=== PATIENT | female | born 1985 | race Caucasian/White ===

== ENCOUNTER → 2018-05-27 11:27 | Outpatient (CLI) | payer OTHER, MEDICAID, SELFPAY ==
[2018-05-27 12:16] LABS: Add Manual Diff / Slide Review NO; Basophils Percent Auto 0.4 % (0-2); Eosinophils Percent Auto 0.5 % (2-4); Hematocrit 42.1 % (36-46); Hemoglobin 14.6 g/dL (12.0-16.0); Lymphocytes Percent Auto 31.2 % (25-40); Mean Corpuscular HGB Conc 34.7 % (30-36); Mean Corpuscular Hemoglobin 30.3 PG (26-34); Mean Corpuscular Volume 87.2 fL (80-100); Neutrophils Absolute Auto 4100 /uL (1500-7000); Neutrophils Percent Auto 61.9 % (50-75); Platelet Count 200 X10^3/uL (150-400); Red Blood Cell Count 4.82 X10^6/uL (4.0-5.2); Red Cell Distribution Width 12.9 % (11.6-14.8); White Blood Cell Count 6.6 X10^3/uL (4.5-11.0)
[2018-05-27 12:20] LABS: Glucose 93 mg/dL (70-100)
[2018-05-27 12:23] LABS: Hemoglobin A1C% w Est Avg Glu 5.2 % (4.0-6.0)
[2018-05-27 15:54] LABS: Appearance Urine UA CLEAR; Bilirubin Urine UA NEGATIVE (NEGATIVE); Color Urine UA YELLOW; Glucose Urine UA NEGATIVE (Negative); Ketones Urine UA NEGATIVE (NEGATIVE); Leukocyte Esterase Urine UA TRACE (NEGATIVE); Nitrite Urine UA NEGATIVE (Negative); Occult Blood Urine UA TRACE-LYSED (Negative); Protein Urine UA NEGATIVE (Negative); Specific Gravity Urine UA 1.015 (1.000-1.035); Urobilinogen Urine UA 0.2 E.U./dL (0.2); pH Urine UA 5.5 (4.5-8.0)
[2018-05-27 16:29] LABS: Amorphous Sediment Urine 1+; Bacteria Urine Occasional (0-1); RBC Urine 0-1/HPF (0-5/HPF); Squamous Epithelial Cell Urine 1-5 /HPF; WBC Urine 1-5/HPF (0-5/HPF)
[2018-05-27 16:30] LABS: Culture Indicated Urine Specimen Cultured
[2018-05-30 13:09] LABS: HSV 2 IGG AB < 0.90 index (< 0.90)
[2018-06-03 18:10] LABS: RPR Screen Nonreactive (Nonreactive)
== END ==
DX: Z34.81 Encounter for supervision of other normal pregnancy, first trimester (principal)
CPT/HCPCS: 36415; 80055; 81003; 81015; 82947; 83036; 86695; 86696; 86702; 86703; 86787; 86803; 86850; 86900; 86901; 87086; 87340

== ENCOUNTER → 2018-07-11 11:06 | Outpatient (CLI) | payer BC, OTHER, MEDICAID, SELFPAY ==
[2018-07-15 13:12] LABS: Sequential Screen 1st Trimeste FINAL PENDING
== END ==
PROVIDERS: PCP Physician Assistant Medical
DX: Z34.81 Encounter for supervision of other normal pregnancy, first trimester (principal); Z3A.13 13 weeks gestation of pregnancy; Z36.0 Encounter for antenatal screening for chromosomal anomalies
CPT/HCPCS: 36415; 84163; 84702

== ENCOUNTER 2018-07-14 20:17 | Emergency (ER) | payer BC, OTHER, MEDICAID, SELFPAY ==
[2018-07-14 20:21] VITALS: BP 133/85; PULSE 88; RESP 18; TEMP 36.9; O2SAT 98; BMI 28.3
--- NOTE | 2018-07-14 20:45 | ED.PREGNANCY ---
HPI - General Chief complaint: Vaginal Bleeding Stated complaint: 13wks and bleeding Time Seen by Provider: 07/14/18 20:44 Source: patient Mode of arrival: ambulatory Limitations: no limitations History of Present Illness HPI Narrative: The patient is . She is currently 13 weeks . Earlier today she developed mild vaginal bleeding. There is no associated abdominal cramping. She has no nausea or vomiting. She has no associated dysuria or back pain. She has had no fever or chills. She has had recent URI with nonproductive cough. She has no sinus pressure, sore throat or fever. She has no significant chest discomfort. Prior pregnancies have been complicated with preeclampsia. In 1 of her prior also had a placenta previa that resolved during the course of . She has no chronic diagnosis of hypertension or other medical problems requiring medications. She has no history of surgeries. Patient : Yes Related Data Home Medications Medication Instructions Recorded Confirmed 1 tab PO DAILY 05/27/18 07/14/18 vitamin,calcium,tjzlwspp-jluc-xatlg acid tablet Allergies Allergy/AdvReac Type Severity Reaction Status Date / Time No Known Drug Allergies Allergy Verified 07/14/18 20:20 Review of Systems Review of Systems ROS Unobtainable: All systems reviewed & are unremarkable except as noted in HPI and below Constitutional Denies body ache(s), Denies chills, Denies fatigue and Denies lethargy Eyes Denies change in vision, Denies eye discharge, Denies irritation and Denies loss of vision ENT Ears, Nose, Mouth, and Throat: Reports nasal congestion Cardiovascular Denies chest pain and Denies irregular heart rhythm Respiratory Reports cough, Denies hemoptysis and Denies excessive phlegm production Gastrointestinal Gastrointestinal: Denies abdominal pain, Denies change in bowel habits, Denies diarrhea, Denies nausea and Denies vomiting Genitourinary Denies dysuria and Reports other (Mild vaginal bleeding) Musculoskeletal Denies back pain, Denies muscle weakness, Denies numbness and Denies tingling Integumentary/Breasts Denies pruritus, Denies erythema, Denies rash and Denies wounds Neurologic Denies loss of vision, Denies numbness and Denies tingling Endocrine Denies fatigue PMFSH - Past Medical History Medical history: Reports non-contributory See prior issues with pregnancies. No chronic illnesses. Surgical history: Reports no surgical history Patient : Yes Family history: Reports no significant family history Exam Initial Vital Signs Initial Vital Signs: Vital Signs Temperature 98.4 F 07/14/18 20:21 Pulse Rate 88 07/14/18 20:21 Respiratory Rate 18 07/14/18 20:21 Blood Pressure 133/85 07/14/18 20:21 Pulse Oximetry 98 07/14/18 20:21 Const General: cooperative and well developed Nutritional Appearance: well nourished Orientation: alert, awake, oriented x3 and not confused Resp Effort & Inspection: normal respiratory effort, able to speak in complete sentences, no respiratory distress and no use of accessory muscles Auscultation: clear to auscultation bilaterally, no rales, no rhonchi and no wheezes Cardio Rate: regular rate Rhythm: regular rhythm Heart Sounds: no click, no gallops, no murmurs and no rubs Pulses: normal peripheral pulses GI Inspection: non-distended Palpation: soft, no hepatosplenomegaly, No guarding, No pulsatile mass and No tender Auscultation: normal bowel sounds Back/Spine/Pelvis Back: No CVA tenderness Skin General: no rashes or lesions noted and No jaundice Neuro General: alert and oriented x3 Psych Appearance: well kempt Attitude: cooperative Thought Content: normal and suicidality Judgment: judgment good Course Orders Ordered: ED Orders 07/14/18 20:44 US OB limited Stat 07/14/18 21:48 Urine Culture Stat Urine Microscopic Stat Vital Signs - 8 hr 07/14/18 20:21 07/14/18 22:18 Temperature 98.4 F Pulse Rate 88 85 Respiratory Rate 18 16 Blood Pressure 133/85 Blood Pressure [Right Arm] 124/69 Pulse Oximetry 98 97 MDM - OB/Uterine Contractions Lab Data Lab Results 07/14/18 Range/Units 21:48 Urine RBC 0-1/hpf (0-5/HPF) Urine WBC 1-5/hpf (0-5/HPF) Ur Squamous Epith Cells 1-5 /hpf Urine Bacteria Moderate (10-30) H (None) Ur Culture Indicated? Specimen cultured Urine Dip Bedside Urine Glucose Negative Bedside Urine Bilirubin - Negative Bedside Urine Ketone +++ 80 Urine Specific [place] 1.025 Bedside Urine Occult Blood ++ Bedside Urine pH 6.0 Bedside Urine Protein +/- 15 Bedside Urine Urobilinogen - Negative Bedside Urine Nitrite - Negative Bedside Urine Leukocytes ++ 125 Esterase Imaging Data Ob ultrasound:: Radiologist's impression: 176 Clem Jackson MD Find Patient Imaging Marly Cabrera 32 F 1985 ACTIVITY DATE EXAM STATUS AUTHOR 07/14/18 20:[address] [address] Ultrasound Report Signed Patient: Marly CabreraMR#: [id number] : 1985Acct:[id number] Age/Sex: 32 / FDate of Service: 07/14/18 Loc: ED Accession Number: [id number] Procedure: US OB limited Ordering Provider: Clem Jackson M.D. PROCEDURE: US OB LIMITED INDICATIONS: VAGINAL BLEEDING OUTSIDE/PRIOR DATING DATA: Last menstrual period (LMP): 03/23/18. LMP-based estimated date of delivery (ANAIS): 12/28/18. First dating scan (date and location): 06/10/[address] Ramierz' office. Estimated date of delivery (ANAIS) from first dating scan: 01/13/19. TECHNIQUE: Real-time scanning was performed of the fetus, with image documentation and biometric measurements. COMPARISON: [facility], [place], US OB < 14 WEEKS, 07/11/2018, 10:51. FINDINGS: General: A single living intrauterine gestation is present. Presentation: Early Placenta: Placental position is anterior. There is a low-lying placenta with marginal placenta previa although evaluation is limited by early gestational age. Amniotic fluid: Appears within normal limits. heart rate: 160 beats per minute. Maternal cervical canal: Not evaluated. biometrics: Biparietal diameter: 2.8 cm, 15 weeks 0 days Head circumference: 10.5 cm, 15 weeks 0 days Abdominal circumference: 8.2 cm, 14 weeks 4 days Femur length: 1.3 cm, 13 weeks 5 days Estimated gestational age from initial scan: 13 weeks 6 days Composite gestational age from present scan: 14 weeks 4 days Measurement variability for biometric dating: +/- 7 days from 14 weeks to 15 weeks 6 days gestation, +/- 10 days from 16 weeks to 21 weeks 6 days gestation, +/- 2 weeks from 22 weeks to 27 weeks 6 days gestation, +/- 3 weeks for 28 weeks gestation or later. weight reference: 4500 g or EFW >90/95% is considered macrosomia or large for gestational age. EFW <10% is small for gestational age. EFW 5% or less is considered intra-uterine growth restriction. IMPRESSION: 1. Single living intrauterine redemonstrated with calculated gestational age of 14 weeks 4 days. 2. Anterior placenta with marginal placenta previa noted but evaluation is limited by early gestational age. Recommend attention on followup. Dictated by: Agustin Anguiano M.D. on 07/14/2018 at 21:46 Approved by: Agustin Anguiano M.D. on 07/14/2018 at 21:51 Discharge Plan Departure Patient Disposition: Home Clinical Impression: Threatened Instructions: DI for Threatened Activity Restrictions/Additional Instructions: The bleeding may be related to the marginal placenta previa, but there is no evidence of separation or bleeding from the placenta where it is attached to the placenta wall. If you have significant increase in bleeding, abdominal cramping, see her doctor or return here. Prescriptions: No Action prenat.vits,balta,vwn-zueb-bvcge tablet 1 tab PO DAILY RF: 0 Referrals: Leta Kay PA-C [Primary Care Provider] -
--- NOTE | 2018-07-14 21:05 | ED_ITS ---
HPI - General Chief complaint: Vaginal Bleeding Stated complaint: 13wks and bleeding Time Seen by Provider: 07/14/18 20:44 Source: patient Mode of arrival: ambulatory Limitations: no limitations History of Present Illness HPI Narrative: The patient is . She is currently 13 weeks . Earlier today she developed mild vaginal bleeding. There is no associated abdominal cramping. She has no nausea or vomiting. She has no associated dysuria or back pain. She has had no fever or chills. She has had recent URI with nonproductive cough. She has no sinus pressure, sore throat or fever. She has no significant chest discomfort. Prior pregnancies have been complicated with preeclampsia. In 1 of her prior also had a placenta previa that resolved during the course of . She has no chronic diagnosis of hypertension or other medical problems requiring medications. She has no history of surgeries. Patient : Yes Related Data Home Medications Medication Instructions Recorded Confirmed 1 tab PO DAILY 05/27/18 07/14/18 vitamin,calcium,yamccosf-etbw-qiotf acid tablet Allergies Allergy/AdvReac Type Severity Reaction Status Date / Time No Known Drug Allergies Allergy Verified 07/14/18 20:20 Review of Systems Review of Systems ROS Unobtainable: All systems reviewed & are unremarkable except as noted in HPI and below Constitutional Denies body ache(s), Denies chills, Denies fatigue and Denies lethargy Eyes Denies change in vision, Denies eye discharge, Denies irritation and Denies loss of vision ENT Ears, Nose, Mouth, and Throat: Reports nasal congestion Cardiovascular Denies chest pain and Denies irregular heart rhythm Respiratory Reports cough, Denies hemoptysis and Denies excessive phlegm production Gastrointestinal Gastrointestinal: Denies abdominal pain, Denies change in bowel habits, Denies diarrhea, Denies nausea and Denies vomiting Genitourinary Denies dysuria and Reports other (Mild vaginal bleeding) Musculoskeletal Denies back pain, Denies muscle weakness, Denies numbness and Denies tingling Integumentary/Breasts Denies pruritus, Denies erythema, Denies rash and Denies wounds Neurologic Denies loss of vision, Denies numbness and Denies tingling Endocrine Denies fatigue PMFSH - Past Medical History Medical history: Reports non-contributory See prior issues with pregnancies. No chronic illnesses. Surgical history: Reports no surgical history Patient : Yes Family history: Reports no significant family history Exam Initial Vital Signs Initial Vital Signs: Vital Signs Temperature 98.4 F 07/14/18 20:21 Pulse Rate 88 07/14/18 20:21 Respiratory Rate 18 07/14/18 20:21 Blood Pressure 133/85 07/14/18 20:21 Pulse Oximetry 98 07/14/18 20:21 Const General: cooperative and well developed Nutritional Appearance: well nourished Orientation: alert, awake, oriented x3 and not confused Resp Effort & Inspection: normal respiratory effort, able to speak in complete sentences, no respiratory distress and no use of accessory muscles Auscultation: clear to auscultation bilaterally, no rales, no rhonchi and no wheezes Cardio Rate: regular rate Rhythm: regular rhythm Heart Sounds: no click, no gallops, no murmurs and no rubs Pulses: normal peripheral pulses GI Inspection: non-distended Palpation: soft, no hepatosplenomegaly, No guarding, No pulsatile mass and No tender Auscultation: normal bowel sounds Back/Spine/Pelvis Back: No CVA tenderness Skin General: no rashes or lesions noted and No jaundice Neuro General: alert and oriented x3 Psych Appearance: well kempt Attitude: cooperative Thought Content: normal and suicidality Judgment: judgment good Course Orders Ordered: ED Orders 07/14/18 20:44 US OB limited Stat 07/14/18 21:48 Urine Culture Stat Urine Microscopic Stat Vital Signs - 8 hr 07/14/18 20:21 07/14/18 22:18 Temperature 98.4 F Pulse Rate 88 85 Respiratory Rate 18 16 Blood Pressure 133/85 Blood Pressure [Right Arm] 124/69 Pulse Oximetry 98 97 MDM - OB/Uterine Contractions Lab Data Lab Results 07/14/18 Range/Units 21:48 Urine RBC 0-1/hpf (0-5/HPF) Urine WBC 1-5/hpf (0-5/HPF) Ur Squamous Epith Cells 1-5 /hpf Urine Bacteria Moderate (10-30) H (None) Ur Culture Indicated? Specimen cultured Urine Dip Bedside Urine Glucose Negative Bedside Urine Bilirubin - Negative Bedside Urine Ketone +++ 80 Urine Specific [place] 1.025 Bedside Urine Occult Blood ++ Bedside Urine pH 6.0 Bedside Urine Protein +/- 15 Bedside Urine Urobilinogen - Negative Bedside Urine Nitrite - Negative Bedside Urine Leukocytes ++ 125 Esterase Imaging Data Ob ultrasound:: Radiologist's impression: 176 Clem Jackson MD Find Patient Imaging Marly Cabrera 32 F 1985 ACTIVITY DATE EXAM STATUS AUTHOR 07/14/18 20:[address] [address] Ultrasound Report Signed Patient: Marly CabreraMR#: [id number] : 1985Acct:[id number] Age/Sex: 32 / FDate of Service: 07/14/18 Loc: ED Accession Number: [id number] Procedure: US OB limited Ordering Provider: Clem Jackson M.D. PROCEDURE: US OB LIMITED INDICATIONS: VAGINAL BLEEDING OUTSIDE/PRIOR DATING DATA: Last menstrual period (LMP): 03/23/18. LMP-based estimated date of delivery (ANAIS): 12/28/18. First dating scan (date and location): 06/10/[address] Ramirez' office. Estimated date of delivery (ANAIS) from first dating scan: 01/13/19. TECHNIQUE: Real-time scanning was performed of the fetus, with image documentation and biometric measurements. COMPARISON: [facility], [place], US OB < 14 WEEKS, 07/11/2018, 10:51. FINDINGS: General: A single living intrauterine gestation is present. Presentation: Early Placenta: Placental position is anterior. There is a low-lying placenta with marginal placenta previa although evaluation is limited by early gestational age. Amniotic fluid: Appears within normal limits. heart rate: 160 beats per minute. Maternal cervical canal: Not evaluated. biometrics: Biparietal diameter: 2.8 cm, 15 weeks 0 days Head circumference: 10.5 cm, 15 weeks 0 days Abdominal circumference: 8.2 cm, 14 weeks 4 days Femur length: 1.3 cm, 13 weeks 5 days Estimated gestational age from initial scan: 13 weeks 6 days Composite gestational age from present scan: 14 weeks 4 days Measurement variability for biometric dating: +/- 7 days from 14 weeks to 15 weeks 6 days gestation, +/- 10 days from 16 weeks to 21 weeks 6 days gestation, +/- 2 weeks from 22 weeks to 27 weeks 6 days gestation, +/- 3 weeks for 28 weeks gestation or later. weight reference: 4500 g or EFW >90/95% is considered macrosomia or large for gestational age. EFW <10% is small for gestational age. EFW 5% or less is considered intra-uterine growth restriction. IMPRESSION: 1. Single living intrauterine redemonstrated with calculated gestational age of 14 weeks 4 days. 2. Anterior placenta with marginal placenta previa noted but evaluation is limited by early gestational age. Recommend attention on followup. Dictated by: Agustin Anguiano M.D. on 07/14/2018 at 21:46 Approved by: Agustin Anguiano M.D. on 07/14/2018 at 21:51 Discharge Plan Departure Patient Disposition: Home Clinical Impression: Threatened Instructions: DI for Threatened Activity Restrictions/Additional Instructions: The bleeding may be related to the marginal placenta previa, but there is no evidence of separation or bleeding from the placenta where it is attached to the placenta wall. If you have significant increase in bleeding, abdominal cramping, see her doctor or return here. Prescriptions: No Action prenat.vits,balta,ybx-asbt-retao tablet 1 tab PO DAILY RF: 0 Referrals: Leta Kay PA-C [Primary Care Provider] -
[2018-07-14 22:08] LABS: RBC Urine 0-1/HPF (0-5/HPF); Squamous Epithelial Cell Urine 1-5 /HPF; WBC Urine 1-5/HPF (0-5/HPF)
[2018-07-14 22:09] LABS: Bacteria Urine Moderate (10-30); Culture Indicated Urine Specimen Cultured
[2018-07-14 22:18] VITALS: BP 124/69; PULSE 85; RESP 16; O2SAT 97
== END 2018-07-14 22:33 | disposition home or self-care (01) ==
PROVIDERS: Emergency Provider Emergency Medicine; PCP Physician Assistant Medical
DX: O20.0 Threatened abortion (principal); Z3A.14 14 weeks gestation of pregnancy
CPT/HCPCS: 76815; 76817; 81003; 81015; 87086; 99282; 99283

== ENCOUNTER → 2018-08-05 10:40 | Outpatient (CLI) | payer BC, OTHER, MEDICAID, SELFPAY ==
[2018-08-08 10:55] LABS: Sequential Screen 2nd Trimeste SCREEN NEGATIVE
== END ==
PROVIDERS: PCP Physician Assistant Medical
DX: Z34.82 Encounter for supervision of other normal pregnancy, second trimester (principal)
CPT/HCPCS: 36415; 82105; 82677; 84163; 84702; 86336

== ENCOUNTER → 2018-10-10 09:52 | Outpatient (CLI) | payer BC, OTHER, MEDICAID, SELFPAY ==
[2018-10-10 12:19] LABS: Hematocrit 35.2 % (36-46); Hemoglobin 12.1 g/dL (12.0-16.0)
[2018-10-10 13:15] LABS: GTT (PREG) 1 Hour PP 50gm Dose 155 mg/dL (76-139)
== END ==
PROVIDERS: PCP Physician Assistant Medical
DX: Z34.82 Encounter for supervision of other normal pregnancy, second trimester (principal)
CPT/HCPCS: 36415; 82950; 85014; 85018

== ENCOUNTER → 2018-10-14 09:40 | Outpatient (CLI) | payer BC, OTHER, MEDICAID, SELFPAY ==
[2018-10-14 12:33] LABS: Glucose 1 Hour 141 mg/dL (70-170)
[2018-10-14 12:46] LABS: Glucose Fasting 76 mg/dL (70-100)
[2018-10-14 13:10] LABS: Glucose Tol Interpretation INTERPRETATION
[2018-10-14 13:30] LABS: Glucose 2 Hour 81 mg/dL (70-140)
[2018-10-14 14:12] LABS: Glucose 3 Hour 57 mg/dL (70-115)
== END ==
PROVIDERS: PCP Physician Assistant Medical
DX: R73.09 Other abnormal glucose (principal)
CPT/HCPCS: 36415; 82951; 82952

== ENCOUNTER → 2018-12-09 15:28 | Outpatient (CLI) | payer BC, OTHER, MEDICAID, SELFPAY ==
[2018-12-10 12:56] LABS: Strep Grp B PCR NEG for Grp B Strep
== END ==
DX: Z36.85 Encounter for antenatal screening for Streptococcus B (principal); Z3A.35 35 weeks gestation of pregnancy
CPT/HCPCS: 87653

== ENCOUNTER 2019-01-13 20:40 | Inpatient (IN) | payer BC, OTHER, MEDICAID, SELFPAY ==
[2019-01-13 23:16] VITALS: BP 113/57
[2019-01-13 23:32] LABS: Add Manual Diff / Slide Review NO; Basophils Absolute Auto 0 /uL (0-100); Basophils Percent Auto 0.3 % (0-2); Eosinophils Absolute Auto 100 /uL (0-450); Hematocrit 33.3 % (36-46); Hemoglobin 11.6 g/dL (12.0-16.0); Lymphocytes Absolute Auto 2400 /uL (1100-4500); Lymphocytes Percent Auto 25.6 % (25-40); Mean Corpuscular HGB Conc 34.7 % (30-36); Mean Corpuscular Volume 86.6 fL (80-100); Monocytes Absolute Auto 700 /uL (0-900); Monocytes Percent Auto 7.8 % (3-14); Neutrophils Absolute Auto 6200 /uL (1500-7000); Neutrophils Percent Auto 65.3 % (50-75); Platelet Count 198 X10^3/uL (150-400); Red Blood Cell Count 3.85 X10^6/uL (4.0-5.2); Red Cell Distribution Width 13.6 % (11.6-14.8)
[2019-01-13 23:40] LABS: White Blood Cell Count 11.4 X10^3/uL (4.5-11.0)
[2019-01-14] MEDS: miSOPROStol 25 MCG TABLET VAG (03:00)
--- NOTE | 2019-01-14 08:01 | PM.OBHP.1 ---
OB HPI Date/Time Date of admission: 01/14/19 Date Patient Seen: 01/14/19 Time Patient Seen: 08:04 History of Present Condition Chief complaint: : 2 Para: 1 Estimated Date of Delivery: 01/13/19 Estimated Gestational Age (weeks): 40 Narrative: Marly Cabrera is a 33 year old female two para one who was at term. Because of extreme maternal discomfort and distance from the hospital patient desired elective induction. Patient's antepartum course was unremarkable. Laboratory studies were all normal. Patient remained normotensive. Urines remain negative glucose and protein. She had adequate fundal growth. The patient is admitted for elective induction. Indications Indication for induction OB: maternal discomfort and maternal distance History of Present care: good care, initiated at week # (9) and number of visits (15) Dating criteria: LMP confirmed by 1st trimester US Ultrasounds: normal 1st trimester US and normal mid trimester US Obstetrical complications: none Medical complications: none Preadmission Labs Blood type: O (+) positive -: Antibody screen: negative, Cystic fibrosis screen: unknown, GBS status: negative, HBsAG: negative, HIV: negative, HSV 1: positive, HSV 2: negative and RPR/VDLR: negative -: Chlamydia screen: detected (Negative) and Gonorrhea screen: detected (Negative) -: Rubella: immune and Varicella: immune HCT: 42 HCAB: negative PAP: Normal Sequential screen: Negative 3 hr GTT: 1 hr (141), 2 hr (81) and 3 hr (56) Fasting blood glucose: 76 Evaluation Evaluation Laboratory results: Laboratory Tests 01/13/19 01/13/19 22:45 22:45 WBC 11.4 H RBC 3.85 L Hgb 11.6 L Hct 33.3 L MCV 86.6 MCH 30.0 MCHC 34.7 RDW 13.6 Plt Count 198 Neut % (Auto) 65.3 Lymph % (Auto) 25.6 [place] % (Auto) 7.8 Eos % (Auto) 1.0 L Baso % (Auto) 0.3 Neut # (Auto) 6200 Lymph # (Auto) 2400 [place] # (Auto) 700 Eos # (Auto) 100 Baso # (Auto) 0 Blood Type O Positive Antibody Screen Negative [facility] Social History Smoking Status: Former smoker Social History Smoking Status: Former smoker Meds Home Medications Medication Instructions Recorded Confirmed Type 1 tab PO DAILY 05/27/18 01/13/19 History vitamin,calcium,xxgizewy-clux-zszyg acid tablet Allergies Allergy/AdvReac Type Severity Reaction Status Date / Time No Known Drug Allergies Allergy Verified 07/14/18 20:20 Review of Systems Review of Systems All systems reviewed & are unremarkable except as noted in HPI and below Exam Const General: cooperative and healthy appearing [facility] Head: normal to inspection Ears: hearing grossly normal bilaterally Nose: external nose normal Face and sinus: normal facial exam Mouth: oral mucosae normal, lip normal, tongue normal and moist mucous membranes Teeth and gingiva: dentition normal Throat: posterior oropharynx normal Eyes General: appearance normal, both eyes and all related structures Neck Neck: normal visual inspection and full ROM Chest Chest: normal inspection of the chest and normal palpation of entire chest wall Breast inspection: normal inspection of the breasts and normal inspection of the axillae Breast Palpation: normal palpation of the breasts and normal palpation of the axillae Resp Effort & Inspection: normal respiratory effort Auscultation: clear to auscultation bilaterally Cardio Palpation: normal PMI Rate: regular rate Rhythm: regular rhythm Heart Sounds: S1 normal and S2 normal GI Inspection: normal to inspection Palpation: soft and no hepatosplenomegaly Percussion: normal to percussion Auscultation: normal bowel sounds OB/External & Speculum: external exam normal Manual OB Exam: dilated 2, effaced 50% and station -1 Presentation: vertex Back/Spine/Pelvis Thoracic/Lumbar Spine: thoracic and lumbar spine normal to inspection Skin General: no rashes or lesions noted Neuro General: alert, oriented x3, tone normal and moves all extremities Cognition: normal cognition Speech: speech normal Gait: normal gait Motor: muscle tone normal throughout Sensory Exam: no sensory deficits noted Extrem General: normal to inspection and normal exam except as noted Psych Appearance: grossly normal and well kempt Mental Status: mental status grossly normal Speech and Movement: speech and movement normal Objective Labs Result Diagrams: 01/13/19 22:45 Labs: Laboratory Results - last 24 hr 01/13/19 01/13/19 22:45 22:45 WBC 11.4 H RBC 3.85 L Hgb 11.6 L Hct 33.3 L MCV 86.6 MCH 30.0 MCHC 34.7 RDW 13.6 Plt Count 198 Neut % (Auto) 65.3 Lymph % (Auto) 25.6 [place] % (Auto) 7.8 Eos % (Auto) 1.0 L Baso % (Auto) 0.3 Neut # (Auto) 6200 Lymph # (Auto) 2400 [place] # (Auto) 700 Eos # (Auto) 100 Baso # (Auto) 0 Blood Type O Positive Antibody Screen Negative Assessment and Plan Assessment and Plan Assessment and Plan narrative: Term intrauterine Extreme maternal discomfort distance from the hospital Plan is for elective induction. Patient received one Cytotec Cervix is now 2 cm/60% vertex at a two station Plan for Pitocin induction of labor
[2019-01-14] MEDS: LACTATED RINGERS 1,000 ML 100 ML IV (08:08)
--- NOTE | 2019-01-14 08:11 | P.HPOB_ITS ---
OB HPI Date/Time Date of admission: 01/14/19 Date Patient Seen: 01/14/19 Time Patient Seen: 08:04 History of Present Condition Chief complaint: : 2 Para: 1 Estimated Date of Delivery: 01/13/19 Estimated Gestational Age (weeks): 40 Narrative: Marly Cabrera is a 33 year old female two para one who was at term. Because of extreme maternal discomfort and distance from the hospital patient desired elective induction. Patient's antepartum course was unremarkable. Laboratory studies were all normal. Patient remained normotensive. Urines remain negative glucose and protein. She had adequate fundal growth. The patient is admitted for elective induction. Indications Indication for induction OB: maternal discomfort and maternal distance History of Present care: good care, initiated at week # (9) and number of visits (15) Dating criteria: LMP confirmed by 1st trimester US Ultrasounds: normal 1st trimester US and normal mid trimester US Obstetrical complications: none Medical complications: none Preadmission Labs Blood type: O (+) positive -: Antibody screen: negative, Cystic fibrosis screen: unknown, GBS status: negative, HBsAG: negative, HIV: negative, HSV 1: positive, HSV 2: negative and RPR/VDLR: negative -: Chlamydia screen: detected (Negative) and Gonorrhea screen: detected (Negative) -: Rubella: immune and Varicella: immune HCT: 42 HCAB: negative PAP: Normal Sequential screen: Negative 3 hr GTT: 1 hr (141), 2 hr (81) and 3 hr (56) Fasting blood glucose: 76 Evaluation Evaluation Laboratory results: Laboratory Tests 01/13/19 01/13/19 22:45 22:45 WBC 11.4 H RBC 3.85 L Hgb 11.6 L Hct 33.3 L MCV 86.6 MCH 30.0 MCHC 34.7 RDW 13.6 Plt Count 198 Neut % (Auto) 65.3 Lymph % (Auto) 25.6 Crawford % (Auto) 7.8 Eos % (Auto) 1.0 L Baso % (Auto) 0.3 Neut # (Auto) 6200 Lymph # (Auto) 2400 Crawford # (Auto) 700 Eos # (Auto) 100 Baso # (Auto) 0 Blood Type O Positive Antibody Screen Negative [facility] Social History Smoking Status: Former smoker Social History Smoking Status: Former smoker Meds Home Medications Medication Instructions Recorded Confirmed Type 1 tab PO DAILY 05/27/18 01/13/19 History vitamin,calcium,ebbhtqxm-pbli-nflwr acid tablet Allergies Allergy/AdvReac Type Severity Reaction Status Date / Time No Known Drug Allergies Allergy Verified 07/14/18 20:20 Review of Systems Review of Systems All systems reviewed & are unremarkable except as noted in HPI and below Exam Const General: cooperative and healthy appearing [facility] Head: normal to inspection Ears: hearing grossly normal bilaterally Nose: external nose normal Face and sinus: normal facial exam Mouth: oral mucosae normal, lip normal, tongue normal and moist mucous membranes Teeth and gingiva: dentition normal Throat: posterior oropharynx normal Eyes General: appearance normal, both eyes and all related structures Neck Neck: normal visual inspection and full ROM Chest Chest: normal inspection of the chest and normal palpation of entire chest wall Breast inspection: normal inspection of the breasts and normal inspection of the axillae Breast Palpation: normal palpation of the breasts and normal palpation of the axillae Resp Effort & Inspection: normal respiratory effort Auscultation: clear to auscultation bilaterally Cardio Palpation: normal PMI Rate: regular rate Rhythm: regular rhythm Heart Sounds: S1 normal and S2 normal GI Inspection: normal to inspection Palpation: soft and no hepatosplenomegaly Percussion: normal to percussion Auscultation: normal bowel sounds OB/External & Speculum: external exam normal Manual OB Exam: dilated 2, effaced 50% and station -1 Presentation: vertex Back/Spine/Pelvis Thoracic/Lumbar Spine: thoracic and lumbar spine normal to inspection Skin General: no rashes or lesions noted Neuro General: alert, oriented x3, tone normal and moves all extremities Cognition: normal cognition Speech: speech normal Gait: normal gait Motor: muscle tone normal throughout Sensory Exam: no sensory deficits noted Extrem General: normal to inspection and normal exam except as noted Psych Appearance: grossly normal and well kempt Mental Status: mental status grossly normal Speech and Movement: speech and movement normal Objective Labs Result Diagrams: 01/13/19 22:45 Labs: Laboratory Results - last 24 hr 01/13/19 01/13/19 22:45 22:45 WBC 11.4 H RBC 3.85 L Hgb 11.6 L Hct 33.3 L MCV 86.6 MCH 30.0 MCHC 34.7 RDW 13.6 Plt Count 198 Neut % (Auto) 65.3 Lymph % (Auto) 25.6 Crawford % (Auto) 7.8 Eos % (Auto) 1.0 L Baso % (Auto) 0.3 Neut # (Auto) 6200 Lymph # (Auto) 2400 Crawford # (Auto) 700 Eos # (Auto) 100 Baso # (Auto) 0 Blood Type O Positive Antibody Screen Negative Assessment and Plan Assessment and Plan Assessment and Plan narrative: Term intrauterine Extreme maternal discomfort distance from the hospital Plan is for elective induction. Patient received one Cytotec Cervix is now 2 cm/60% vertex at a two station Plan for Pitocin induction of labor
[2019-01-14] MEDS: OXYTOCIN PREMIX 30 UNIT/500 ML PLAST..BAG IV (08:15)
--- NOTE | 2019-01-14 10:30 | PM.OBPNLAB ---
Date/Time Date Patient Seen: 01/14/19 Time Patient Seen: 10:30 Pain Control Pain control: tolerating well Comments: Wants epidural and Pelvic Exam Dilation (cm): 4 Effacement (%): 80 station: -1 Amniotic membrane status: Ruptured Comments: Under fluid Contractions Contractions on admission: regular Monitor mode: External Pitocin rate (mU/min): 11 Contraction frequency (min): 3 Contraction duration (min): 1 Contraction pattern: Regular Contraction phase: Resting Contraction intensity: Moderate Status status: Category l Monitor Accelerations: Present Monitor Decelerations: Absent Monitor Variability: Moderate Assessment and Plan Assessment: active labor and induction ongoing Plan: continuous present management
--- NOTE | 2019-01-14 12:18 | PM.OBPRVD ---
Delivery date: 01/14/19 Intrapartal events: None Cervical ripening method: per misoprostal protocol Induction method: per pitocin protocol Delivery augmentation: rupture of membranes Delivery monitor: external FHT and external uterine Route of delivery: L&D Laceration Description: Perineal - 1st Degree Delivery repair: chromic Estimated blood loss (mL): 300 Anesthesia type: Local Complications: None Narrative: Patient is a 33-year-old who was admitted for induction of labor. Misoprostol cervical ripening was used. The toast was begun using the three nara units regimen. Patient made good progress complete and delivered spontaneously a live born male infant with scores of nine at 1 minute nine at 5 minutes in good condition. There was a small first-degree tear repaired with two 0 chromic suture. There were no cervical vaginal or periurethral tears. The placenta delivered spontaneously. Cord had three vessels. The estimated blood loss was 300 cc. Sponge and needle counts were correct. Plan for aftercare: Routine
[2019-01-14] MEDS: IBUPROFEN 600 MG TABLET PO (18:15)
[2019-01-15] MEDS: IBUPROFEN 600 MG TABLET PO (03:14)
[2019-01-15 05:50] LABS: Hematocrit 27.7 % (36-46); Hemoglobin 9.6 g/dL (12.0-16.0)
[2019-01-15] MEDS: LANOLIN OINT 7 GM 1 APPLIC TOP (06:37)
--- NOTE | 2019-01-15 07:10 | PM.OBDS.1 ---
Discharge Providers Date of admission: 01/13/19 20:40 Discharge Date: 01/15/19 Consults: 01/14/19 15:41 Consult to Accountant Tax Routine Comment: Consult to Painting Instructor Routine Comment: Discharge provider: Clem Ramirez MD Summary Date Patient Seen: 01/15/19 Time Patient Seen: 07:10 Procedures: Pitocin induction of labor Misoprostol cervical ripening Spontaneous vaginal delivery Repair 1st degree tear Hospital Course: The patient is a 33-year-old who was admitted for elective induction of labor. Patient received misoprostol ripening and Pitocin stimulation. Membranes were ruptured. Patient had rapid progress to complete. And delivered spontaneously a live born male with scores benign went nine at 5 minutes good condition. There was a first-degree tear repaired with two 0 chromic suture. Estimated blood loss was 300 cc. Post delivery the patient did well. She remained afebrile stable vital signs and was progressively alimented and ambulated. She was discharged home for follow-up in four weeks Peripartum Data Infant Delivery Method: Natural Vaginal Laceration description: Periurethral - 1st Degree complications: none Status at Discharge Cognitive/behavioral status at discharge: oriented Functional status at discharge: independent ambulation Overall status at discharge: patient is progressing back to baseline Time Spent with Patient Total time spent providing and/or coordinating discharge services: Less than 30 minutes Objective Labs Result Diagrams: 01/15/19 05:35 Labs: Laboratory Results - last 24 hr 01/15/19 05:35 Hgb 9.6 L Hct 27.7 L Exam Narrative Exam Narrative: Fundus U minus two Perineum looks fine Lochia scant Discharge Plan Discharge Plan Patient Disposition: Home Discharge Med Rec/Prescriptions Prescriptions: New Dermoplast (with menthol) 20-0.5 % Aerosol 1 spray topical Q1HR PRN (Reason: perineal pain) Qty: 56 RF: 0 ibuprofen 600 mg Tablet 600 mg PO Q6HR PRN (Reason: Pain, Mild (1-3)) Qty: 20 RF: 0 docusate sodium 250 mg Capsule 250 mg PO DAILY Qty: 10 RF: 0 Zxp-P-Gclfmp Cream 1 applic topical PRN PRN (Reason: Tenderness) Qty: 32 RF: 0 ferrous gluconate 324 mg (38 mg iron) Tablet 324 mg PO DAILY Qty: 60 RF: 0 oxycodone-acetaminophen 5-325 mg Tablet 2 tab PO Q4HR Qty: 10 RF: 0 Discontinued prenat.vits,balta,lsm-ytfm-yvhjl tablet 1 tab PO DAILY RF: 0 Follow up/Referrals: Clem Ramirez MD [Physician] - 02/07/19 Provider Discharge Instructions Diet: Diet as Tolerated Activity: Routine Skin/Wound/Dressing Care Report to your healthcare provider any signs of infection, such as:: chills, fever, increased pain, unusual drainage and unusual redness Discharge Data Attending Provider: Clem Ramirez Admit Date/Time: 01/13/19 20:40
--- NOTE | 2019-01-15 07:13 | P.DS_ITS ---
Discharge Providers Date of admission: 01/13/19 20:40 Discharge Date: 01/15/19 Consults: 01/14/19 15:41 Consult to It Service Continuity Supervisor Routine Comment: Consult to Private Watchman Routine Comment: Discharge provider: Clem Ramirez MD Summary Date Patient Seen: 01/15/19 Time Patient Seen: 07:10 Procedures: Pitocin induction of labor Misoprostol cervical ripening Spontaneous vaginal delivery Repair 1st degree tear Hospital Course: The patient is a 33-year-old who was admitted for elective induction of labor. Patient received misoprostol ripening and Pitocin stimulation. Membranes were ruptured. Patient had rapid progress to complete. And delivered spontaneously a live born male with scores benign went nine at 5 minutes good condition. There was a first-degree tear repaired with two 0 chromic suture. Estimated blood loss was 300 cc. Post delivery the patient did well. She remained afebrile stable vital signs and was progressively alimented and ambulated. She was discharged home for follow-up in four weeks Peripartum Data Infant Delivery Method: Natural Vaginal Laceration description: Periurethral - 1st Degree complications: none Status at Discharge Cognitive/behavioral status at discharge: oriented Functional status at discharge: independent ambulation Overall status at discharge: patient is progressing back to baseline Time Spent with Patient Total time spent providing and/or coordinating discharge services: Less than 30 minutes Objective Labs Result Diagrams: 01/15/19 05:35 Labs: Laboratory Results - last 24 hr 01/15/19 05:35 Hgb 9.6 L Hct 27.7 L Exam Narrative Exam Narrative: Fundus U minus two Perineum looks fine Lochia scant Discharge Plan Discharge Plan Patient Disposition: Home Discharge Med Rec/Prescriptions Prescriptions: New Dermoplast (with menthol) 20-0.5 % Aerosol 1 spray topical Q1HR PRN (Reason: perineal pain) Qty: 56 RF: 0 ibuprofen 600 mg Tablet 600 mg PO Q6HR PRN (Reason: Pain, Mild (1-3)) Qty: 20 RF: 0 docusate sodium 250 mg Capsule 250 mg PO DAILY Qty: 10 RF: 0 Gur-F-Yskexb Cream 1 applic topical PRN PRN (Reason: Tenderness) Qty: 32 RF: 0 ferrous gluconate 324 mg (38 mg iron) Tablet 324 mg PO DAILY Qty: 60 RF: 0 oxycodone-acetaminophen 5-325 mg Tablet 2 tab PO Q4HR Qty: 10 RF: 0 Discontinued prenat.vits,balta,ocv-bxhi-bnzrf tablet 1 tab PO DAILY RF: 0 Follow up/Referrals: Clem Ramirez MD [Physician] - 02/07/19 Provider Discharge Instructions Diet: Diet as Tolerated Activity: Routine Skin/Wound/Dressing Care Report to your healthcare provider any signs of infection, such as:: chills, fev er, increased pain, unusual drainage and unusual redness Discharge Data Attending Provider: Clem Ramirez Admit Date/Time: 01/13/19 20:40
[2019-01-15] MEDS: PRENATAL VIT,CALC/IRON/FOLIC 1 TABLET 1 TAB PO (09:29)
[2019-01-15] MEDS: DOCUSATE 250 MG CAPSULE PO (09:29)
[2019-01-15] MEDS: FERROUS GLUCONATE 324 MG TABLET PO (09:30)
[2019-01-15 12:36] VITALS: BP 96/60; PULSE 66; RESP 16; TEMP 37.1
== END 2019-01-15 16:40 | disposition home or self-care (01) | DRG 560 ==
DX: O26.813 Pregnancy related exhaustion and fatigue, third trimester (principal); O70.0 First degree perineal laceration during delivery; Z3A.40 40 weeks gestation of pregnancy; Z37.0 Single live birth
CPT/HCPCS: 36415; 59050; 59200; 59410; 85014; 85018; 85025; 86850; 86900; 86901; G0379; J2590

== ENCOUNTER → 2019-08-25 11:38 | Outpatient (CLI) | payer BC, OTHER, MEDICAID, SELFPAY ==
[2019-08-25 20:07] LABS: Urine N gonorrhoeae NOT DETECTED
[2019-08-25 20:09] LABS: Urine Chlamydia NOT DETECTED
== END ==
DX: Z34.81 Encounter for supervision of other normal pregnancy, first trimester (principal); Z3A.08 8 weeks gestation of pregnancy; Z11.3 Encounter for screening for infections with a predominantly sexual mode of transmission
CPT/HCPCS: 87086; 87491; 87591

== ENCOUNTER → 2019-10-03 10:25 | Outpatient (CLI) | payer BC, OTHER, MEDICAID, SELFPAY ==
[2019-10-03 11:28] LABS: Add Manual Diff / Slide Review NO; Basophils Absolute Auto 0 /uL (0-100); Basophils Percent Auto 0.3 % (0-2); Eosinophils Absolute Auto 0 /uL (0-450); Eosinophils Percent Auto 0.1 % (2-4); Hematocrit 37.1 % (36-46); Hemoglobin 12.8 g/dL (12.0-16.0); Lymphocytes Absolute Auto 1200 /uL (1100-4500); Lymphocytes Percent Auto 15.7 % (25-40); Mean Corpuscular HGB Conc 34.5 % (30-36); Mean Corpuscular Hemoglobin 29.5 PG (26-34); Mean Corpuscular Volume 85.5 fL (80-100); Monocytes Absolute Auto 300 /uL (0-900); Monocytes Percent Auto 4.3 % (3-14); Neutrophils Absolute Auto 6000 /uL (1500-7000); Neutrophils Percent Auto 79.6 % (50-75); Platelet Count 196 X10^3/uL (150-400); Red Blood Cell Count 4.34 X10^6/uL (4.0-5.2); White Blood Cell Count 7.5 X10^3/uL (4.5-11.0)
[2019-10-03 13:14] LABS: Appearance Urine UA CLEAR; Bilirubin Urine UA NEGATIVE (NEGATIVE); Color Urine UA YELLOW; Glucose Urine UA NEGATIVE (Negative); Ketones Urine UA 1+ (NEGATIVE); Leukocyte Esterase Urine UA NEGATIVE (NEGATIVE); Nitrite Urine UA NEGATIVE (Negative); Occult Blood Urine UA 1+ (Negative); Protein Urine UA NEGATIVE (Negative); Urobilinogen Urine UA 0.2 E.U./dL (0.2)
[2019-10-03 13:26] LABS: RBC Urine 0-1/HPF (0-5/HPF); Squamous Epithelial Cell Urine 5-10 /HPF (0-5/HPF); WBC Urine 0-1/HPF (0-5/HPF); pH Urine UA 5.5 (4.5-8.0)
[2019-10-03 13:27] LABS: Bacteria Urine Few (2-10); Culture Indicated Urine Cult Not Indicated
[2019-10-04 16:07] LABS: RPR Screen Non Reactive (Non Reactive); Varicella IgG Antibody 3680 index (Immune >165)
[2019-10-06 21:28] LABS: Hepatitis B Surface Antigen NEGATIVE s/c (NEGATIVE); Rubella Antibody IgG 71.8 IU/mL (>15)
[2019-10-06 21:45] LABS: HIV 1 & 2 Ab/Ag 4th Gen Combo NEGATIVE (NEGATIVE); Hep C Virus Ab w/Reflex Quant NEGATIVE s/c (NEGATIVE)
== END ==
DX: O09.521 Supervision of elderly multigravida, first trimester (principal); Z36.0 Encounter for antenatal screening for chromosomal anomalies; Z3A.13 13 weeks gestation of pregnancy
CPT/HCPCS: 36415; 81003; 81015; 81420; 84163; 84702; 85025; 86592; 86762; 86787; 86803; 86850; 86900; 86901; 87340; 87389

== ENCOUNTER → 2019-10-31 10:29 | Outpatient (CLI) | payer BC, OTHER, MEDICAID, SELFPAY ==
[2019-11-03 15:09] LABS: AFP, Serum 44.4 ng/mL (.); Estriol, Free 1.87 ng/mL (.); Inhibin A, Dimeric 78.99 pg/mL (.); Inhibin A, MoM 0.58 (.); Maternal Ethnicity Caucasian (.); Maternal Weight 211 lbs (.); Number of Fetuses No (.); OSBR Risk 1 IN 4664 (.); Results Report (.); Test Results *Screen Negative* (.); hCG, MoM 0.13 (.); hCG, Serum 3027 mIU/mL (.)
== END ==
DX: Z34.82 Encounter for supervision of other normal pregnancy, second trimester (principal); Z3A.17 17 weeks gestation of pregnancy
CPT/HCPCS: 36415; 82105; 82677; 84702; 86336

== ENCOUNTER → 2020-01-13 12:51 | Outpatient (CLI) | payer BC, OTHER, MEDICAID, SELFPAY ==
[2020-01-13 15:32] LABS: Hematocrit 37.3 % (36-46); Hemoglobin 12.5 g/dL (12.0-16.0)
[2020-01-13 16:07] LABS: GTT (PREG) 1 Hour PP 50gm Dose 114 mg/dL (76-139)
== END ==
DX: Z34.82 Encounter for supervision of other normal pregnancy, second trimester (principal); Z3A.25 25 weeks gestation of pregnancy
CPT/HCPCS: 36415; 82950; 85014; 85018

== ENCOUNTER → 2020-02-16 14:38 | Outpatient (CLI) | payer OTHER, MEDICAID, SELFPAY ==
--- NOTE | 2020-02-16 14:40 | DI.US.S_ITS ---
PROCEDURE: US OB LIMITED INDICATIONS: Growth/ Assess placenta location OUTSIDE/PRIOR DATING DATA: Last menstrual period (LMP): 06/28/19. LMP-based estimated date of delivery (ANAIS): 04/03/20 . First dating scan (date and location): 08/25/19 . Estimated date of delivery (ANAIS) from first dating scan: 04/03/20 . TECHNIQUE: Real-time scanning was performed of the fetus, with image documentation and biometric measurements. Endovaginal scanning: Not performed COMPARISON: [facility], , US OB >= 14 WEEKS FETUS, 02/09/2020, 11:27. [facility], , US OB >= 14 WEEKS FETUS, 11/24/2019, 9:15. [facility], , OB <= 14 WEEKS FETUS, 10/03/2019, 10:01. [facility], , OB >= 14 WEEKS FETUS, 09/24/2019, 12:22. [facility], , OB <= 14 WEEKS FETUS, 08/25/2019, 11:46. [facility], , US OB >= 14 WEEKS FETUS, 12/09/2018, 16:08. [facility], , US OB >= 14 WEEKS FETUS, 10/14/2018, 9:27. [facility], , US OB >= 14 WEEKS FETUS, 09/05/2018, 10:43. [facility], , US OB < 14 WEEKS, 07/11/2018, 10:51. [facility], , OB <= 14 WEEKS FETUS, 06/10/2018, 10:55. [facility], US OB LIMITED, 07/14/2018, 21:06. FINDINGS: General: A single living intrauterine gestation is present. Presentation: Breech. Placenta: Placental position is right posterior , without previa. Amniotic fluid index: 11.6 cm, normal range is 5-24 cm. Largest pocket measures 6.7 cm. heart rate: 131 beats per minute. Maternal cervical canal: 4.0 cm long. Normal lower limit is 2.5 cm. biometrics: Biparietal diameter: 8.2 cm, 32 weeks 5 days Head circumference: 29.8 cm, 32 weeks 6 days Abdominal circumference: 32.9 cm, 36 weeks 6 days Femur length: 6.4 cm, 33 weeks 0 days Estimated gestational age from initial scan: 33 weeks 2 days Composite gestational age from present scan: 33 weeks 6 days Estimated weight and percentile: 2562 g, 88th percentile Measurement variability for biometric dating: +/- 7 days from 14 weeks to 15 weeks 6 days gestation, +/- 10 days from 16 weeks to 21 weeks 6 days gestation, +/- 2 weeks from 22 weeks to 27 weeks 6 days gestation, +/- 3 weeks for 28 weeks gestation or later. weight reference: 4500 g or EFW >90/95% is considered macrosomia or large for gestational age. EFW <10% is small for gestational age. EFW 5% or less is considered intra-uterine growth restriction. Other: Normal appearance of the chest and bladder. IMPRESSION: Single living intrauterine fetus in breech presentation demonstrating expected interval growth as above. Normal appearance of the placenta. No evidence of placenta previa or vasa previa. Dictated by: Leon Ortiz M.D. on 02/16/2020 at 16:47 Approved by: Leon Ortiz M.D. on 02/16/2020 at 16:51
== END ==
PROVIDERS: Referring Provider Obstetrics & Gynecology; Visit Provider Obstetrics & Gynecology
DX: Z34.83 Encounter for supervision of other normal pregnancy, third trimester (principal); Z3A.33 33 weeks gestation of pregnancy
CPT/HCPCS: 76815

== ENCOUNTER → 2020-03-08 17:18 | Outpatient (CLI) | payer OTHER, MEDICAID, SELFPAY ==
[2020-03-09 11:09] LABS: Strep Grp B PCR NEG for Grp B Strep
== END ==
PROVIDERS: PCP Obstetrics & Gynecology; Visit Provider Obstetrics & Gynecology
DX: Z34.03 Encounter for supervision of normal first pregnancy, third trimester (principal); Z3A.36 36 weeks gestation of pregnancy
CPT/HCPCS: 87653

== ENCOUNTER 2020-03-08 17:46 | Outpatient (CLI) | payer OTHER, MEDICAID, SELFPAY ==
--- NOTE | 2020-03-08 18:23 | PM.OBTRLD ---
Visit Information Visit Information Date of evaluation: 03/08/20 Primary OB Provider: Dorie Shay Reason for Evaluation: Yes non-stress test Comments/Additional reasons for admission: Patient sent from L&D for elevated FHR in the setting of copious movement. No other obstetrical complaints, breech presentation. Vital Signs Vital Signs: [facility] Medical History Abnormal Pap smear of cervix (Acute) Congenital heart defect (Acute) Eczema (Acute) Fibrocystic breast (Acute) Heart murmur (Acute) History of gestational diabetes (Acute ~2005) Surgical History History of tonsillectomy (Acute ~1991) S/P correction of deviated nasal septum (Acute) S/P D&C (status post dilation and curettage) (Acute ~2005) [place] teeth extracted (Acute) Family History Mother Migraines Tumor, thyroid Colon cancer Grandmother Cancer Son defect Social History marital status: unmarried,living together details: Reji Cardona [phone] number of children: 3 household members: significant other and family lives independently: Yes education level: college 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 OB Disposition: home
== END 2020-03-08 18:28 | disposition home or self-care (01) ==
LOC: OB 03-09 11:02
PROVIDERS: PCP Obstetrics & Gynecology; Referring Provider Obstetrics & Gynecology; Visit Provider Obstetrics & Gynecology
DX: O36.8330 Maternal care for abnormalities of the fetal heart rate or rhythm, third trimester, not applicable or unspecified (principal); O32.1XX0 Maternal care for breech presentation, not applicable or unspecified; O09.523 Supervision of elderly multigravida, third trimester; Z3A.36 36 weeks gestation of pregnancy
CPT/HCPCS: 59025; 87653; G0378; G0379

== ENCOUNTER → 2020-03-23 15:22 | Outpatient (CLI) | payer OTHER, MEDICAID, SELFPAY ==
[2020-03-24 13:56] LABS: COVID19 Sendout Not Detected (Not Detect)
== END ==
PROVIDERS: PCP Obstetrics & Gynecology; Visit Provider Nurse Practitioner
DX: Z11.59 Encounter for screening for other viral diseases (principal)
CPT/HCPCS: 87635

== ENCOUNTER 2020-03-26 06:25 | Inpatient (IN) | payer OTHER, MEDICAID, SELFPAY ==
--- NOTE | 2020-03-26 | PATH_ITS ---
[facility] Accession Number: [id number] . 01 Material submitted: . fallopian tube - SEGMENTS OF BILATERAL FALLOPIAN TUBES . 02 Diagnosis: Segments of Bilateral Fallopian Tube, Bilateral Tubal Ligation: Complete cross-sections of segments of fallopian tube x2. Negative for atypia or malignancy. MRV 03/30/2020 1032 Local . 02 Electronically signed: . Cami Ly MD, Pathologist NPI- [id number] . 01 Gross description: . The specimen is received in formalin, labeled segments of bilateral fallopian tubes, and consists of two segments of fallopian tubes measuring 1.2 cm in length by 0.6 cm in diameter and 1.9 cm in length by 0.5 cm in diameter. The serosa is pink-purple and smooth. Sectioning reveals a torres mucosa and a stellate lumen measuring 0.2 cm in diameter. The segments are serially sectioned and entirely submitted in cassettes A1-A2. ([id number]) /R 03/27/2020 1653 Local . 02 Pathologist provided ICD-10: O32.1XX0, Z87.51, Z30.2 . 02 CPT . 480701 Performed at: 01 [facility] [address], [place], [place] [id number] MD Agustin Naranjo MD Phone: [phone] Performed at: 02 [facility] [place] [address] [place], [place] [id number] MD Cristal Hyatt MD Phone: [phone]
--- NOTE | 2020-03-26 07:38 | P.HPOB_ITS ---
OB HPI Date/Time Date of admission: 03/26/20 Date Patient Seen: 03/26/20 Time Patient Seen: 08:06 History of Present Condition Chief complaint: PRIMARY W/BTL : 4 Para: 3 Estimated Date of Delivery: 04/03/20 Estimated Gestational Age (weeks): 39 Narrative: Marly Cabrera is a 34 year old 203 at 38 and 6 presenting for a planned primary section for breech presentation, with bilateral tubal ligation. Patient has a history of 2 prior labors, and was beginning to have contractions. Patient reports otherwise feeling well today with normal movement, no other obstetrical complaints, no PIH complaints. Patient has had an otherwise uncomplicated , and has a history of 3 vaginal deliveries, 2 and 1 term. She has history of gestational diabetes in her 1st and retained placenta after her 1st delivery, but no other contributory paver layer, medical, surgical, family, or social history. Indications Operative indications ( section): breech presentation History of Present care: good care Dating criteria: LMP confirmed by 1st trimester US Ultrasounds: normal 1st trimester US and normal mid trimester US Obstetrical complications: none Medical complications: none Preadmission Labs Blood type: O (+) positive -: Antibody screen: negative, GBS status: negative, HBsAG: negative, HIV: negative, HSV 1: positive, HSV 2: negative and RPR/VDLR: negative -: Chlamydia screen: not detected and Gonorrhea screen: not detected -: Rubella: immune and Varicella: immune PAP: Normal Cell-free DNA: Negative, female Urine: Negative 1 hr GTT: 114 Prior (ies) History: G1: 12/10/05, 33 weeks, after labor, 5#15, M, hemorrhage and GDMA G2: 12/13/10, 36 weeks, 7#5, M, , labor G3: 01/14/19, 40+1, , 8#10, M Evaluation Evaluation Baseline heart rate: 130 Variability: Moderate (11-25) monitor accelerations: Present monitor decelerations: Absent [facility] Medical History Abnormal Pap smear of cervix (Acute) Congenital heart defect (Acute) Eczema (Acute) Fibrocystic breast (Acute) Heart murmur (Acute) History of gestational diabetes (Acute ~2005) Surgical History History of tonsillectomy (Acute ~1991) S/P correction of deviated nasal septum (Acute) S/P D&C (status post dilation and curettage) (Acute ~2005) [place] teeth extracted (Acute) Family History Mother Migraines Tumor, thyroid Colon cancer Grandmother Cancer Son defect Social History marital status: unmarried,living together details: Reji Cardona [phone] number of children: 3 household members: significant other and family lives independently: Yes education level: college 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) Smoking Status: Former smoker Tobacco: How many years used: 10 alcohol intake: former (Socially) Meds Home Medications and Allergies Home Medications Medication Instructions Recorded Confirmed Type Sus-X-Bavacy 1 applic TOPICAL PRN PRN #32 gram 01/15/19 03/22/20 Rx docusate sodium [Colace] 100 mg PO BID #60 cap 03/26/20 Rx oxycodone 5 mg PO Q6H PRN #20 tab 03/26/20 Rx Allergies Allergy/AdvReac Type Severity Reaction Status Date / Time No Known Drug Allergies Allergy Verified 03/22/20 13:52 Review of Systems Constitutional Constitutional: Reports system reviewed and no additional complaints, except as documented Cardiovascular Cardiovascular: Reports system reviewed and no additional complaints, except as documented Respiratory Respiratory: Reports system reviewed and no additional complaints, except as documented Gastrointestinal Gastrointestinal: Reports system reviewed and no additional complaints, except as documented Genitourinary Genitourinary: Reports system reviewed and no additional complaints, except as documented Exam Vital Signs (past 8 hours): 118/59, HR 62 Const General: cooperative, healthy appearing and comfortable Resp Effort & Inspection: normal respiratory effort Auscultation: clear to auscultation bilaterally Cardio Rate: regular rate Rhythm: regular rhythm GI Palpation: soft and No tender Extrem General: normal to inspection Objective Labs Result Diagrams: 03/26/20 08:10 Assessment and Plan Assessment and Plan Assessment and Plan narrative: This patient presents for a scheduled primary section and bilateral tubal ligation for fetus in breech presentation. We readdressed options including version, position was confirmed with ultraso und, we discussed the risks of section including bleeding, infection, damage to bowel and bladder. We discussed that bilateral tubal ligation is considered permanent but that there is a 2-5 in a 1000 risk of failure and similar risk of ectopic , and the patient vocalized understanding and desires to proceed with both section and tubal ligation. She will be admitted per the usual protocol.
--- NOTE | 2020-03-26 07:38 | PM.PREOP ---
Pre-operative Note COVID-19 COVID-19 status: Negative Result date/Date tested (Pos, Neg/Pending): 03/23/20 Interval Note History & Physical reviewed/Exam performed by Physician: Yes Changes to H&P: No
[2020-03-26] MEDS: LACTATED RINGERS 1,000 ML 100 ML IV ×2 (08:07→11:30)
[2020-03-26 08:19] LABS: Add Manual Diff / Slide Review NO; Basophils Absolute Auto 0 /uL (0-100); Basophils Percent Auto 0.6 % (0-2); Eosinophils Absolute Auto 100 /uL (0-450); Eosinophils Percent Auto 0.7 % (2-4); Hematocrit 36.7 % (36-46); Hemoglobin 12.2 g/dL (12.0-16.0); Lymphocytes Absolute Auto 2100 /uL (1100-4500); Lymphocytes Percent Auto 24.3 % (25-40); Mean Corpuscular HGB Conc 33.3 % (30-36); Mean Corpuscular Hemoglobin 28.4 PG (26-34); Mean Corpuscular Volume 85.2 fL (80-100); Monocytes Absolute Auto 500 /uL (0-900); Monocytes Percent Auto 5.9 % (3-14); Neutrophils Absolute Auto 5900 /uL (1500-7000); Neutrophils Percent Auto 68.5 % (50-75); Platelet Count 206 X10^3/uL (150-400); Red Cell Distribution Width 14.2 % (11.6-14.8); White Blood Cell Count 8.6 X10^3/uL (4.5-11.0)
[2020-03-26] MEDS: CEFAZOLIN 2 GM/100 ML FROZ.PIGGY IV (08:40)
--- NOTE | 2020-03-26 08:47 | SUR.OPER ---
Supine on Padded OR bed, head on pillow, safety belt at thigh, arms secured on padded arm boards at <90 degrees abduction. Bump under right buttock. Legs uncrossed with pillow under knees, gel pad to heels, tape over blanket to lower legs.
--- NOTE | 2020-03-26 09:06 | SUR.OPER ---
FHT 130 TOB AT 08:52 ALIVE GIRL CORD BLOOD X 2 AND PLACENTA GIVEN TO OB NURSE
[2020-03-26 09:43] VITALS: BP 113/48; PULSE 56; RESP 15; TEMP 36.3; O2SAT 97
--- NOTE | 2020-03-26 09:43 | PM.OP.1 ---
Operative Date/Time/Diagnoses Date of procedure: 03/26/20 Time of procedure: 08:30 Pre-op diagnosis: Breech presentation, desires permanent sterilization Post-op diagnosis: same Procedure & Clinicians Procedure: Primary section with bilateral tubal ligation Same procedure as scheduled: Yes Indications: Breech presentation and desires permanent sterilization Surgeon: Dorie Shay Kersey Department Supervisor: Elaina Victoria Anesthesia Type: Spinal Operative Notes Findings: Female fetus and double footling breech presentation, loose nuchal cord x1. Weight 7 lb 14 oz, Apgars 6+9. Small paratubal cysts on both fallopian tubes. Apparent mullerian anomaly of uterus, with left horn significantly larger than right. Closure Type: primary Specimen(s): other (portions of right and left fallopian tube) Applied: catheter Estimated Blood Loss (mL): 750 Blood products transfused: none Procedure in detail: EBL: 750ccs Fluids:80ccs UOP: 100ccs yellow urine Procedures: The patient was taken to the operating room where spinal anesthesia was placed and found to be adequate. She was prepped and draped in the normal sterile fashion in the dorsal supine position with a leftward tilt. A Pfannenstiel skin incision was made with a scalpel and carried through to the underlying layer of fascia. The fascia was incised in the midline and the incision extended laterally with Millan scissors. The superior aspect of this incision was grasped with Suzie clamps, elevated, and the underlying rectus muscles dissected off bluntly and with curved Millan scissors. Attention was then turned to the inferior aspect of this incision which, in a similar fashion, was grasped, tented up with the Suzie clamps, and the rectus muscles dissected off bluntly. The rectus muscles were then in the midline, and the peritoneum identified, tented up, and entered sharply with Metzenbaum scissors. The peritoneal incision was extended superiorly and inferiorly with good visualization of the bladder. The bladder blade was inserted and the vesico uterine peritoneum identified, grasped with pickups, and entered sharply with the Metzenbaum scissors. This incision was extended laterally, and the bladder flap created digitally. The bladder blade was then reinserted and the lower uterine segment incised in transverse fashion with the scalpel. The uterine incision was bluntly extended laterally. The bladder blade was removed, and the 's feet grasped and drawn through the incision. With gentle traction, the fetus was delivered to the level of the scapula. The anterior arm was delivered, the fetus was rotated 180?, and the 2nd arm also easily delivered. At this time, the delivery of the vertex was attempted with the usual maneuvers, with fingers on the zygomatic arches. The uterine incision was found to be adequate, and the hysterotomy extended with the bandage scissors cranially 1 cm. Re-attempt was made to deliver the vertex, which was unsuccessful. Cord was clamped and cut, and the infant handed off to waiting pediatricians. The placenta was then removed manually, and the uterus was exteriorized and cleared of all clots and debris. The uterine incision was repaired with 1-0 chromic in a running, locked fashion and a 2nd layer of the same suture was used to obtain excellent hemostasis. Attention was then turned to the fallopian tubes. The right fallopian tube was grasped and elevated with a [place] clamp after being followed to the fimbriated end. Two serial ties of plain gut suture were placed on the fallopian tube, and the subsequently created knuckle was amputated with Metzenbaum scissors. The Endo sound checks was trimmed and the ends of the fallopian tube cauterized, and hemostasis was assured. A small para ovarian cyst was removed with cautery at the same time. Attention was then turned to the left fallopian tube, which was ligated, cut, and cauterized in the same fashion, similarly with a paraovarian cyst which was removed. Good hemostasis was noted, and the uterus was carefully returned to the abdomen. The gutters were cleared of all clots and debris. The bladder flap was closed with 2-0 Vicryl, and the fascia reapproximated with 0 Vicryl in a running fashion. Peritoneum was not closed due to severe patient discomfort. The subcutaneous layer was placed with 3 0 Vicryl in an interrupted fashion and the skin was closed with 4-0 biosyn in a running fashion. The patient tolerated the procedure well sponge lap and needle counts were correct x2. 2 g of Ancef were given at commencement of the case. The patient was taken to the recovery room in stable condition. IVF 800ccs UOP 100ccs yellow urine EBL 750ccs Complications: none Post-operative Condition: stable Disposition: PACU Plan for aftercare: Routine post CS care
[2020-03-26 09:48] VITALS: BP 104/42; PULSE 50; RESP 16; O2SAT 95
[2020-03-26 09:58] VITALS: BP 101/52; PULSE 62; RESP 12; O2SAT 99
[2020-03-26 10:06] VITALS: BP 106/54; PULSE 51; RESP 16; TEMP 36.4; O2SAT 95
[2020-03-26] MEDS: KETOROLAC 30 MG/ML VIAL IV ×3 (11:42→23:55)
[2020-03-26] MEDS: ACETAMINOPHEN 325 MG TABLET 650 MG PO (21:03)
[2020-03-26 21:23] VITALS: BP 118/59
[2020-03-27] MEDS: LANOLIN OINT 7 GM 1 APPLIC TOP (00:10)
[2020-03-27] MEDS: KETOROLAC 30 MG/ML VIAL IV (05:52)
[2020-03-27] MEDS: OXYCODONE IR 5 MG TABLET PO ×5 (06:08→20:35)
[2020-03-27 06:46] LABS: Add Manual Diff / Slide Review NO; Basophils Absolute Auto 100 /uL (0-100); Basophils Percent Auto 0.9 % (0-2); Eosinophils Absolute Auto 0 /uL (0-450); Eosinophils Percent Auto 0.4 % (2-4); Hematocrit 33.6 % (36-46); Hemoglobin 11.1 g/dL (12.0-16.0); Lymphocytes Absolute Auto 1400 /uL (1100-4500); Lymphocytes Percent Auto 10.9 % (25-40); Mean Corpuscular HGB Conc 32.9 % (30-36); Mean Corpuscular Volume 85.2 fL (80-100); Monocytes Absolute Auto 800 /uL (0-900); Monocytes Percent Auto 6.5 % (3-14); Neutrophils Absolute Auto 10200 /uL (1500-7000); Neutrophils Percent Auto 81.3 % (50-75); Platelet Count 166 X10^3/uL (150-400); Red Blood Cell Count 3.94 X10^6/uL (4.0-5.2); White Blood Cell Count 12.6 X10^3/uL (4.5-11.0)
[2020-03-27] MEDS: DOCUSATE 250 MG CAPSULE PO (09:37)
[2020-03-27 10:19] VITALS: TEMP 36.5
[2020-03-27 10:21] VITALS: TEMP 36.5
[2020-03-27] MEDS: ACETAMINOPHEN 325 MG TABLET 650 MG PO (10:21)
--- NOTE | 2020-03-27 10:37 | PM.OBPN.1 ---
Subjective - OB Subjective Patient comments: incisional pain and tolerating diet baby status: doing well and nursing well feeding status: exclusively breast feeding Date Patient Seen: 03/27/20 Time Patient Seen: 10:37 Interval history: Patient is a 34-year-old 4 para 4004 postop day # 1 status post primary section secondary to breech presentation. She also had a bilateral tubal ligation. She has voided without the catheter. Exam Vital Signs (past 8 hours): - 03/27/20 10:19 03/27/20 10:21 Temperature 97.7 F 97.7 F Oxygen Delivery Method Room Air Narrative Exam Narrative: Generally: Patient is sitting up in bed, nursing infant, no acute distress Lungs: Clear to auscultation bilaterally Cardiovascular: Regular rate and rhythm Fundus: Firm at U -1 Incision: Clean dry and intact with Aquacel dressing Abdomen: Soft, good bowel sounds. Extremities: Trace edema, negative Homans Objective Labs Result Diagrams: 03/27/20 06:30 Labs: Laboratory Results - last 24 hr 03/27/20 06:30 WBC 12.6 H RBC 3.94 L Hgb 11.1 L Hct 33.6 L MCV 85.2 MCH 28.0 MCHC 32.9 RDW 15.0 H Plt Count 166 Neut % (Auto) 81.3 H Lymph % (Auto) 10.9 L [place] % (Auto) 6.5 Eos % (Auto) 0.4 L Baso % (Auto) 0.9 Neut # (Auto) 31265 H Lymph # (Auto) 1400 [place] # (Auto) 800 Eos # (Auto) 0 Baso # (Auto) 100 Assessment & Plan Plan day: 1 plan OB: routine postop care Time Spent With Patient Time: Total time spent is greater than 50% in coordination of care (as documented) at patient's floor/unit and/or counseling patient: Time with patient: less than 15 minutes
[2020-03-27] MEDS: IBUPROFEN 600 MG TABLET PO ×2 (14:33→20:35)
[2020-03-27] MEDS: SIMETHICONE 80 MG TABLET PO (16:06)
[2020-03-28] MEDS: OXYCODONE IR 5 MG TABLET PO ×2 (01:29→09:27)
[2020-03-28] MEDS: IBUPROFEN 600 MG TABLET PO ×2 (01:29→09:23)
--- NOTE | 2020-03-28 09:06 | PM.OBDS.1 ---
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 She underwent a section and bilateral tubal ligation without complication. Her postoperative course was unremarkable and she is discharged home on postop day # 2, tolerating a diet, ambulating independently, passing flatus, going well, and has been able to void without the catheter. Peripartum Data Delivery Method: Section (And bilateral tubal ligation) Laceration Description: None Episiotomy description: None Procedures: Spinal anesthesia Primary low-transverse section Bilateral tubal ligation complications: none [place] 1: Gender: Female Disposition of : home Status at Discharge Cognitive/behavioral status at discharge: oriented Functional status at discharge: independent ambulation Overall status at discharge: patient is progressing back to baseline Time Spent with Patient Time attestation: Total time spent providing and/or coordinating discharge services: Time spent: Less than 30 minutes Objective Labs Result Diagrams: 03/27/20 06:30 Exam Vital Signs (past 8 hours): Oxygen Delivery Method Room Air Narrative Exam Narrative: Generally: Patient is sitting up in bed, eating breakfast and nursing baby, no acute distress Lungs: Clear to auscultation bilaterally Cardiovascular: Regular rate and rhythm Fundus: Firm at U -2 Incision: Clean dry and intact with Aquacel dressing Extremities: 1+ edema, negative Homans Discharge Plan Discharge Plan Patient Disposition: Home Provider Discharge Comment: Call with fever, chills, redness or drainage around the incision, or bleeding vaginally more than a pad in an hour Tylenol 650 mg by mouth every 6 hours Ibuprofen 600 mg by mouth every 6 hours Percolone every 3 hours as needed Discharge orders & Medications Prescriptions: New oxycodone 5 mg tablet 5 mg PO Q6H PRN (Reason: pain) Qty: 20 RF: 0 docusate sodium [Colace] 100 mg capsule 100 mg PO BID Qty: 60 RF: 0 vit-iron fum-folic ac [ Vitamin with Minerals] 28 mg iron- 800 mcg tablet 1 tab PO DAILY Qty: 90 RF: 3 ibuprofen 600 mg tablet 600 mg PO Q6H PRN (Reason: pain or cramping) Qty: 30 RF: 2 Continued [id number] Cream 1 applic topical PRN PRN (Reason: Tenderness) Qty: 32 RF: 0 Discontinued prenat.vits,balta,[id number] Tablet 1 tab PO DAILY RF: 0 ibuprofen 600 mg Tablet 600 mg PO Q6HR PRN (Reason: Pain, Mild (1-3)) Qty: 20 RF: 0 Follow up/Referrals: Dorie Shay MD [Primary Care Provider] - 1 Week (incision check) Diet/Activity/Treatments Diet: Regular Activity: Nothing in the vagina for 6 weeks. Avoid lifting more than 10 pounds for 6 weeks. If you have increasing bleeding, fevers, chills, nausea, vomiting, headaches, visual changes, trouble breathing, or any other concerning symptoms, call or come to the Emergency Room. Skin/Wound/Dressing Care Report to your healthcare provider any signs of infection, such as:: chills, fever, night sweats, increased pain, unusual drainage and unusual redness Dressing: Do not remove Visit Report/Discharge Packet Instructions: DI for , DI for Prescription Opioid Use Discharge Data Primary Care Provider: Dorie Shay
[2020-03-28 09:23] VITALS: TEMP 37.2
[2020-03-28] MEDS: ACETAMINOPHEN 325 MG TABLET 650 MG PO (09:23)
[2020-03-28] MEDS: DOCUSATE 250 MG CAPSULE PO (09:23)
[2020-03-28 09:27] VITALS: TEMP 37.2
[2020-03-28 10:06] VITALS: BP 104/63; PULSE 82; RESP 18; TEMP 37.2
== END 2020-03-28 12:35 | disposition home or self-care (01) | DRG 540 ==
PROVIDERS: Admitting Provider Obstetrics & Gynecology; PCP Obstetrics & Gynecology; Referring Provider Obstetrics & Gynecology; Visit Provider Obstetrics & Gynecology
PROC: 10D00Z1 Extraction of Products of Conception, Low, Open Approach (ICD-10-PCS; CPT 59514; principal; 2020-03-26 07:45)
DX: O32.8XX0 Maternal care for other malpresentation of fetus, not applicable or unspecified (principal); Z3A.38 38 weeks gestation of pregnancy; Z37.0 Single live birth; Z30.2 Encounter for sterilization
CPT/HCPCS: 36415; 58611; 59050; 59514; 76815; 85025; 86850; 86900; 86901; J0690; J1885; J2274; J3010

== ENCOUNTER → 2020-04-02 14:01 | Outpatient (CLI) | payer OTHER, MEDICAID, SELFPAY ==
--- NOTE | 2020-04-02 14:01 | DI.US.S_ITS ---
PROCEDURE: US PERIPH VENOUS LOW EXTREM RT INDICATIONS: RIGHT LEG EDEMA WEEK POST TECHNIQUE: Real-time imaging, as well as color and pulse Doppler interrogation, were performed of the lower extremity deep veins from the inguinal ligament to the popliteal fossa. COMPARISON: None. FINDINGS: The common femoral, femoral and popliteal veins are normally compressible, and free of intraluminal thrombus. Color and pulse Doppler demonstrate normal phasic intraluminal flow. There is normal augmentation response to distal compression maneuver. IMPRESSION: Negative for deep venous thrombosis. Dictated by: Juan Pablo Pinto M.D. on 04/02/2020 at 14:07 Approved by: Juan Pablo Pinto M.D. on 04/02/2020 at 14:07
== END ==
PROVIDERS: PCP Obstetrics & Gynecology; Referring Provider Obstetrics & Gynecology; Visit Provider Obstetrics & Gynecology
DX: O90.89 Other complications of the puerperium, not elsewhere classified (principal); R22.41 Localized swelling, mass and lump, right lower limb; M79.604 Pain in right leg
CPT/HCPCS: 93971

== ENCOUNTER 2020-05-24 11:36 | Emergency (ER) | payer OTHER, MEDICAID, SELFPAY ==
[2020-05-24 11:48] VITALS: BP 135/98; PULSE 80; RESP 14; TEMP 36.6; O2SAT 98
--- NOTE | 2020-05-24 13:40 | PC.NURSE ---
Since C section in 03/26/2020 patient has had intermittent bilateral lower extremity swelling from knee down. Initially swelling noted in right foot, now increase swelling to right knee, thigh. Increase pain in right knee and thigh can hardly bear weight. Mild swelling noted to left knee/thigh. patient denies calf pain. Had a negative right leg DVT study by PCP at 8 week check up. No redness or warmth to either extremity.
--- NOTE | 2020-05-24 13:42 | DI.US.S_ITS ---
PROCEDURE: US [facility] VENOUS LOW EXTREM RT INDICATIONS: RIGHT LEG SWELLING AND PAIN TECHNIQUE: Real-time imaging, as well as color and pulse Doppler interrogation, were performed of the lower extremity deep veins from the inguinal ligament to the popliteal fossa. COMPARISON: [facility], [facility] VENOUS LOW EXTREM RT, 04/02/2020, 14:35. FINDINGS: The common femoral, femoral and popliteal veins are normally compressible, and free of intraluminal thrombus. Color and pulse Doppler demonstrate normal phasic intraluminal flow. There is normal augmentation response to distal compression maneuver. IMPRESSION: No DVT found right lower extremity. Dictated by: Chun Gomez M.D. on 05/24/2020 at 14:22 Approved by: Chun Gomez M.D. on 05/24/2020 at 14:22
[2020-05-24 13:57] LABS: Add Manual Diff / Slide Review NO; Basophils Absolute Auto 0 /uL (0-100); Basophils Percent Auto 0.5 % (0-2); Eosinophils Absolute Auto 100 /uL (0-450); Eosinophils Percent Auto 1.3 % (2-4); Hematocrit 39.5 % (36-46); Hemoglobin 13.1 g/dL (12.0-16.0); Lymphocytes Absolute Auto 1800 /uL (1100-4500); Lymphocytes Percent Auto 29.6 % (25-40); Mean Corpuscular HGB Conc 33.1 % (30-36); Mean Corpuscular Hemoglobin 27.3 PG (26-34); Mean Corpuscular Volume 82.6 fL (80-100); Monocytes Absolute Auto 400 /uL (0-900); Monocytes Percent Auto 7.3 % (3-14); Neutrophils Absolute Auto 3700 /uL (1500-7000); Neutrophils Percent Auto 61.3 % (50-75); Platelet Count 214 X10^3/uL (150-400); Red Blood Cell Count 4.78 X10^6/uL (4.0-5.2); Red Cell Distribution Width 14.7 % (11.6-14.8)
[2020-05-24 14:11] LABS: BUN Creatinine Ratio 17.5 (6-22); Blood Urea Nitrogen 11 mg/dL (7-17); C-Reactive Protein Quant 1.4 mg/dL (<1.0); Calcium 9.6 mg/dL (8.4-10.2); Carbon Dioxide 30 mmol/L (22-32); Chloride 104 mmol/L (98-107); Estimated Glomerular Filt Rate > 60.0 mL/min (>60); Glucose 96 mg/dL (70-100); HEMOLYSIS < 15 (0-50); Potassium 4.1 mmol/L (3.4-5.1); Sodium 139 mmol/L (137-145)
[2020-05-24] MEDS: KETOROLAC 60 MG/2 ML VIAL 30 MG IM (14:11)
[2020-05-24 14:15] LABS: Erythrocyte Sedimentation Rate 29 MM/HR (0-20)
[2020-05-24 14:17] LABS: NT-proBNP (BNP-Adult 18+) 52 pg/mL (<125)
--- NOTE | 2020-05-24 14:49 | DI.RAD.S_ITS ---
PROCEDURE: XR KNEE RT 3V INDICATIONS: right knee pain and swelling TECHNIQUE: 3 views of the knee were acquired. COMPARISON: None. FINDINGS: Bones: No fractures or dislocations. No suspicious bony lesions. Soft tissues: There is a moderate joint effusion. No suspicious soft tissue calcifications. IMPRESSION: 1. No fracture or dislocation. 2. Moderate joint effusion. Dictated by: Agustin Anguiano M.D. on 05/24/2020 at 15:45 Approved by: Agustin Anguiano M.D. on 05/24/2020 at 15:47
--- NOTE | 2020-05-24 14:49 | DI.RAD.S_ITS ---
PROCEDURE: XR HIP W PEL IF DONE BILAT 2V INDICATIONS: right extremity and leg pain TECHNIQUE: AP pelvis with lateral views of the bilateral hips. COMPARISON: None. FINDINGS: Bones: No fractures or dislocations. Pelvic ring appears intact. There is minimal axial joint space narrowing in the hips bilaterally. There is mild degeneration of the pubic symphysis. No suspicious bony lesions. Soft tissues: The visualized bowel gas pattern is normal. No suspicious soft tissue calcifications. IMPRESSION: 1. No acute bony abnormality. Dictated by: Agustin Anguiano M.D. on 05/24/2020 at 15:39 Approved by: Agustin Anguiano M.D. on 05/24/2020 at 15:45
[2020-05-24 15:09] LABS: Uric Acid 4.1 mg/dL (2.5-6.2)
[2020-05-24 15:28] VITALS: BP 111/57; PULSE 66; RESP 18; O2SAT 99
--- NOTE | 2020-05-24 17:00 | ED_ITS ---
HPI - Extremity Problem <JORGE Ortiz - Last Filed: 05/24/20 17:22> General Chief complaint: Extremity Problem,Nontraumatic Stated complaint: 03/26, Legs Swelling Time Seen by Provider: 05/24/20 13:24 Source: patient and family Mode of arrival: Wheelchair Limitations: no limitations History of Present Illness HPI Narrative: This is a 34 year female, nonsmoker, who is 8 weeks after delivered her by presents to ED with significant other with chief complain of nontraumatic right knee and upper leg pain and swelling. Patient reports after a week she developed right foot swelling and had ultrasound test done to set DVT which was negative. Patient report right foot swelling has resolved since then. Patient has been having intermittent left upper leg and knee swelling which also have improved. Patient denies fever, chills, nausea or vomiting. Patient denies redness or warmth to affected joint or leg. Patient denies chest pain, orthopnea, dyspnea. Patient states decreased range of motion and difficulty flexing affected knee due to swelling and pain. Patient has difficult time walking due to pain as well. Related Data Previous Rx's Medication Instructions Recorded Sld-O-Rjpplk 1 applic TOPICAL PRN PRN #32 gram 01/15/19 docusate sodium [Colace] 100 mg PO BID #60 cap 03/26/20 vit-iron fum-folic ac 1 tab PO DAILY #90 tab 03/28/20 [ Vitamin with Minerals] ketorolac 10 mg PO TID PRN #14 tab 05/24/20 Allergies Allergy/AdvReac Type Severity Reaction Status Date / Time No Known Drug Allergies Allergy Verified 05/24/20 11:52 Review of Systems <Tee Maldonado CLINICAL PHARMACY SPECIALIST - Last Filed: 05/24/20 17:22> Review of Systems Narrative: General: Denies fever, chills, fatigue, malaise, sweats. HEENT: Denies sinus pain, ear pain, sore throat, difficulty swallowing, dizziness. Respiratory: Denies dyspnea, cough, wheezing, hemoptysis, sputum. Cardiovascular: Denies chest pain, palpitations, orthopnea, edema. Gastrointestinal: Denies nausea, vomiting, abdominal pain, diarrhea, constipation, melena. : Denies dysuria, frequency, incontinence, hematuria, urinary retention. Musculoskeletal: See HPI Skin: Denies rash, skin lesions, or other. Patient History <JORGE Ortiz - Last Filed: 05/24/20 17:22> Medical History Abnormal Pap smear of cervix Congenital heart defect Eczema Fibrocystic breast Heart murmur History of gestational diabetes (~2005) Surgical History History of tonsillectomy (~1991) S/P correction of deviated nasal septum S/P D&C (status post dilation and curettage) (~2005) [place] teeth extracted Family History Mother Migraines Tumor, thyroid Colon cancer Grandmother Cancer Son defect Social History marital status: unmarried,living together details: Reji Cardona [phone] number of children: 3 household members: significant other and family lives independently: Yes education level: college 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 Head: normocephalic, atraumatic, no scalp lesions, non-tender. ENT: Hearing grossly intact. Nose without bleeding, purulent discharge. Airway patent. Neck/Thyroid: neck supple, full range of motion, no visible masses or meningeal signs. No JVD, non-tender without lymphadenopathy. Skin: no suspicious rashes, lesions over visible areas. Warm and dry and appropriate color for ethnicity. Heart: no clubbing, no cyanosis, no edema. S1 and S2 normal. RRR w/o murmurs, clicks, or bruits. Lungs: Breathing even and unlabored. No stridor. No accessory muscles used. Able to speak in full sentences. Chest: normal shape and expansion. Abdomen: non-obese, non-distended. Neurologic: alert and oriented. Cognitive exam, ORDER MANAGER and PNS grossly intact on informal exam. Psych: good eye contact, normal affect. Initial Vital Signs Initial Vital Signs: Vital Signs Temperature 97.8 F 05/24/20 11:48 Pulse Rate 80 05/24/20 11:48 Respiratory Rate 14 05/24/20 11:48 Blood Pressure 135/98 H 05/24/20 11:48 Pulse Oximetry 98 05/24/20 11:48 Extrem Right lower extremity: hip/thigh Details: tenderness Location: of the proximal upper leg and of the mid upper leg, knee Details: abnormal to inspection, tender ness (around the patella) Location: of the lateral joint line, swelling (lateral patella), abnormal ROM Details: pain with active ROM during and pain with passive ROM during and knee ligament exam normal, lower leg (soft calf compartment) Details: normal to inspection and no edema; no erythema, no tenderness and no localized swelling, ankle Details: normal to inspection; no tenderness and no swelling and foot Details: normal capillary refill, normal to inspection, toes with normal ROM and vascular exam Details: dorsalis pedis pulse present and normal capillary refill; no tenderness Left lower extremity: normal to inspection, full ROM and no joint enlargement; no edema <Joseph Mei DO - Last Filed: 05/25/20 09:23> Initial Vital Signs Initial Vital Signs: Vital Signs Temperature 97.8 F 05/24/20 11:48 Pulse Rate 80 05/24/20 11:48 Respiratory Rate 14 05/24/20 11:48 Blood Pressure 135/98 H 05/24/20 11:48 Pulse Oximetry 98 05/24/20 11:48 Procedures <JORGE Ortiz - Last Filed: 05/24/20 17:22> Orthopedic Splinting/Casting Injury #1: Side: right Lower Extremity Injury Location: knee Lower Extremity Immobilizer: Clay wrap Other Orthopedic Equipment: crutches Post splinting neuro exam: intact Post splinting vascular exam: intact Placed by: Nursing Scores <JORGE Ortiz - Last Filed: 05/24/20 17:22> GCS [place] coma scale eye opening: Spontaneous [place] coma scale verbal response: Orientated Zen coma scale motor response: Obey commands [place] coma scale total score: 15 qSOFA Altered Mental Status (GCS <15): No Respiratory rate greater than/equal to 22: No Systolic blood pressure less than or equal to 100: No qSOFA Total: 0 0-1 Not High Risk 1-3 High risk Course <[facility] - Last Filed: 05/24/20 17:22> Orders Ordered: Discontinued Medications Ketorolac Tromethamine (Ketorolac 60 Mg/2 Ml Vial) 30 mg IM NOW ONE Stop: 05/24/20 13:43 Last Admin: 05/24/20 14:11 Dose: 30 mg Documented by: KESHAVSON Vital Signs Vital signs: Vital Signs - 8 hr 05/24/20 11:48 05/24/20 15:28 Temperature 97.8 F Pulse Rate 80 66 Respiratory Rate 14 18 Blood Pressure 135/98 H 111/57 L Pulse Oximetry 98 99 <Joseph Mei DO - Last Filed: 05/25/20 09:23> Orders Ordered: Discontinued Medications Ketorolac Tromethamine (Ketorolac 60 Mg/2 Ml Vial) 30 mg IM NOW ONE Stop: 05/24/20 13:43 Last Admin: 05/24/20 14:11 Dose: 30 mg Documented by: NATALIEUDSON Vital Signs Vital signs: Vital Signs - 8 hr 05/24/20 11:48 05/24/20 15:28 Temperature 97.8 F Pulse Rate 80 66 Respiratory Rate 14 18 Blood Pressure 135/98 H 111/57 L Pulse Oximetry 98 99 MDM - Extremity (Nontraumatic) <[facility] - Last Filed: 05/24/20 17:22> Differential Diagnosis Differential diagnosis: Likely gout, cellulitis, deep vein thrombosis of lower extremity and other (fracture, dislocation, effusion, arthritis, CHF) Medical Records Attestation: I reviewed the patient's medical records. Lab Data Attestation: I reviewed the patient's lab results. Result diagrams: 05/24/20 13:49 05/24/20 13:49 Labs: Lab Results 05/24/20 05/24/20 05/24/20 Range/Units 13:49 13:49 13:49 WBC 6.0 (4.5-11.0) X10^3/uL RBC 4.78 (4.0-5.2) X10^6/uL Hgb 13.1 (12.0-16.0) g/dL Hct 39.5 (36-46) % MCV 82.6 (80-100) fL MCH 27.3 (26-34) PG MCHC 33.1 (30-36) % RDW 14.7 (11.6-14.8) % Plt Count 214 (150-400) X10^3/uL Neut % (Auto) 61.3 (50-75) % Lymph % (Auto) 29.6 (25-40) % Tyrrell % (Auto) 7.3 (3-14) % Eos % (Auto) 1.3 L (2-4) % Baso % (Auto) 0.5 (0-2) % Neut # (Auto) 3700 (3004-1625) /uL Lymph # (Auto) 1800 (3626-7194) /uL Tyrrell # (Auto) 400 (0-900) /uL Eos # (Auto) 100 (0-450) /uL Baso # (Auto) 0 (0-100) /uL ESR 29 H (0-20) MM/HR Sodium 139 (137-145) mmol/L Potassium 4.1 (3.4-5.1) mmol/L Chloride 104 (98-107) mmol/L Carbon Dioxide 30 (22-32) mmol/L BUN 11 (7-17) mg/dL Creatinine 0.63 (0.52-1.04) mg/dL Estimated GFR > 60.0 (>60) mL/min BUN/Creatinine Ratio 17.5 (6-22) Glucose 96 (70-100) mg/dL Uric Acid (2.5-6.2) mg/dL Calcium 9.6 (8.4-10.2) mg/dL C-Reactive Protein 1.4 H (<1.0) mg/dL NT-Pro-B Natriuret Pep 52 (<125) pg/mL 05/24/20 Range/Units 13:49 WBC (4.5-11.0) X10^3/uL RBC (4.0-5.2) X10^6/uL Hgb (12.0-16.0) g/dL Hct (36-46) % MCV (80-100) fL MCH (26-34) PG MCHC (30-36) % RDW (11.6-14.8) % Plt Count (150-400) X10^3/uL Neut % (Auto) (50-75) % Lymph % (Auto) (25-40) % Tyrrell % (Auto) (3-14) % Eos % (Auto) (2-4) % Baso % (Auto) (0-2) % Neut # (Auto) (4805-3092) /uL Lymph # (Auto) (9714-1707) /uL Tyrrell # (Auto) (0-900) /uL Eos # (Auto) (0-450) /uL Baso # (Auto) (0-100) /uL ESR (0-20) MM/HR Sodium (137-145) mmol/L Potassium (3.4-5.1) mmol/L Chloride (98-107) mmol/L Carbon Dioxide (22-32) mmol/L BUN (7-17) mg/dL Creatinine (0.52-1.04) mg/dL Estimated GFR (>60) mL/min BUN/Creatinine Ratio (6-22) Glucose (70-100) mg/dL Uric Acid 4.1 (2.5-6.2) mg/dL Calcium (8.4-10.2) mg/dL C-Reactive Protein (<1.0) mg/dL NT-Pro-B Natriuret Pep (<125) pg/mL Imaging Data US - DVT: Radiologist's Impression: [address] [id number] ReportSigned Patient: Marly Cabrera [facility]#: [id number]: 1985Acct:[id number]/Sex: 34 / FDate of Service: 05/24/20Loc: EDAccession Number: [id number] Procedure: US periph venous low extrem rt Ordering Provider: Tee Maldonado PROCEDURE: US PERIPH VENOUS LOW EXTREM RT INDICATIONS: RIGHT LEG SWELLING AND PAIN TECHNIQUE: Real-time imaging, as well as color and pulse Doppler interrogation, were performed of the lower extremity deep veins from the inguinal ligament to the popliteal fossa. COMPARISON: [facility], US PERIPH VENOUS LOW EXTREM RT, 04/02/2020, 14:35. FINDINGS: The common femoral, femoral and popliteal veins are normally compressible, and free of intraluminal thrombus. Color and pulse Doppler demonstrate normal phasic intraluminal flow. There is normal augmentation response to distal compression maneuver. IMPRESSION: No DVT found right lower extremity. Dictated by: Chun Gomez M.D. on 05/24/2020 at 14:22 Approved by: Chun Gomez M.D. on 05/24/2020 at 14:22 XR-Pelvis: Radiologist's Impression: [address] [id number] ReportSigned Patient: Marly Cabrera [facility]#: [id number]: 1985Acct:[id number]/Sex: 34 / FDate of Service: 05/24/20Loc: EDAccession Number: [id number] Procedure: XR hip w pel if done BILAT 2V Ordering Provider: Tee Maldonado PROCEDURE: XR HIP W PEL IF DONE BILAT 2V INDICATIONS: right extremity and leg pain TECHNIQUE: AP pelvis with lateral views of the bilateral hips. COMPARISON: None. FINDINGS: Bones: No fractures or dislocations. Pelvic ring appears intact. There is minimal axial joint space narrowing in the hips bilaterally. There is mild degeneration of the pubic symphysis. No suspicious bony lesions. Soft tissues: The visualized bowel gas pattern is normal. No suspicious soft t issue calcifications. IMPRESSION: 1. No acute bony abnormality. Dictated by: Agustin Anguiano M.D. on 05/24/2020 at 15:39 Approved by: Agustin Anguiano M.D. on 05/24/2020 at 15:45 XR-Knee: Radiologist's Impression: Marly Cabrera N 34 F [address] [id number] ReportSigned Patient: Marly Cabrera [facility]#: [id number]: 1985Acct:[id number]/Sex: 34 / FDate of Service: 05/24/20Loc: EDAccession Number: [id number] Procedure: XR knee RT 3V Ordering Provider: Tee Maldonado PROCEDURE: XR KNEE RT 3V INDICATIONS: right knee pain and swelling TECHNIQUE: 3 views of the knee were acquired. COMPARISON: None. FINDINGS: Bones: No fractures or dislocations. No suspicious bony lesions. Soft tissues: There is a moderate joint effusion. No suspicious soft tissue calcifications. IMPRESSION: 1. No fracture or dislocation. 2. Moderate joint effusion. Dictated by: Agustin Anguiano M.D. on 05/24/2020 at 15:45 Approved by: Agustin Anguiano M.D. on 05/24/2020 at 15:47 [facility] Narrative Medical decision making narrative: This is a 34-year-old female presents to ED with nontraumatic right knee, swelling and upper leg pain. She is 8 week post . Reports decreased range of motion active, flexion, bearing weight due to pain. Physical exam appreciated swelling to lateral right knee. Patient has intact sensation, cap refill, dorsal pedis pulse. Patient is able to move toes in bilateral foot w/o difficulty. Physical exam not consistent with cellulitis or infectious joint without warmth, redness. US of LE for DVT is negative. No leukocytosis. Normal kidney function test. ProBNP was negative. Mildly elevated inflammatory indicators. Considered to gout in large joint but Uric acid is normal. Patient is afebrile with within normal vital signs. X-ray test shows moderate knee effusion with mild degeneration of the pubis symphysis without acute findings. There is minimal axial joint space narrowing in the hips bilaterally. During findigs were shared with the patient and spouse that patient had some knee effusion in the past before the and delivery without trauma or injuries. Patient was medicated with Toradol IM injection. She was discharged to home with Ketorlac prn use for pain and inflammation. Applied clay wrap on affected knee and provided crutches and teaching for PRN use. Patient advised to monitor worsening symptoms, signs and symptoms for infection. Advised to follow up with primary care physician orthopedist pain persists. She verbalized understanding in agreement with the treatment plan. <Joseph Mei, DO - Last Filed: 05/25/20 09:23> Lab Data Labs: Lab Results 05/24/20 05/24/20 05/24/20 Range/Units 13:49 13:49 13:49 WBC 6.0 (4.5-11.0) X10^3/uL RBC 4.78 (4.0-5.2) X10^6/uL Hgb 13.1 (12.0-16.0) g/dL Hct 39.5 (36-46) % MCV 82.6 (80-100) fL MCH 27.3 (26-34) PG MCHC 33.1 (30-36) % RDW 14.7 (11.6-14.8) % Plt Count 214 (150-400) X10^3/uL Neut % (Auto) 61.3 (50-75) % Lymph % (Auto) 29.6 (25-40) % Tyrrell % (Auto) 7.3 (3-14) % Eos % (Auto) 1.3 L (2-4) % Baso % (Auto) 0.5 (0-2) % Neut # (Auto) 3700 (9473-4022) /uL Lymph # (Auto) 1800 (0350-4899) /uL Tyrrell # (Auto) 400 (0-900) /uL Eos # (Auto) 100 (0-450) /uL Baso # (Auto) 0 (0-100) /uL ESR 29 H (0-20) MM/HR Sodium 139 (137-145) mmol/L Potassium 4.1 (3.4-5.1) mmol/L Chloride 104 (98-107) mmol/L Carbon Dioxide 30 (22-32) mmol/L BUN 11 (7-17) mg/dL Creatinine 0.63 (0.52-1.04) mg/dL Estimated GFR > 60.0 (>60) mL/min BUN/Creatinine Ratio 17.5 (6-22) Glucose 96 (70-100) mg/dL Uric Acid (2.5-6.2) mg/dL Calcium 9.6 (8.4-10.2) mg/dL C-Reactive Protein 1.4 H (<1.0) mg/dL NT-Pro-B Natriuret Pep 52 (<125) pg/mL 05/24/20 Range/Units 13:49 WBC (4.5-11.0) X10^3/uL RBC (4.0-5.2) X10^6/uL Hgb (12.0-16.0) g/dL Hct (36-46) % MCV (80-100) fL MCH (26-34) PG MCHC (30-36) % RDW (11.6-14.8) % Plt Count (150-400) X10^3/uL Neut % (Auto) (50-75) % Lymph % (Auto) (25-40) % Tyrrell % (Auto) (3-14) % Eos % (Auto) (2-4) % Baso % (Auto) (0-2) % Neut # (Auto) (0549-6796) /uL Lymph # (Auto) (4045-0217) /uL Tyrrell # (Auto) (0-900) /uL Eos # (Auto) (0-450) /uL Baso # (Auto) (0-100) /uL ESR (0-20) MM/HR Sodium (137-145) mmol/L Potassium (3.4-5.1) mmol/L Chloride (98-107) mmol/L Carbon Dioxide (22-32) mmol/L BUN (7-17) mg/dL Creatinine (0.52-1.04) mg/dL Estimated GFR (>60) mL/min BUN/Creatinine Ratio (6-22) Glucose (70-100) mg/dL Uric Acid 4.1 (2.5-6.2) mg/dL Calcium (8.4-10.2) mg/dL C-Reactive Protein (<1.0) mg/dL NT-Pro-B Natriuret Pep (<125) pg/mL Discharge Plan Departure Patient Disposition: Home Clinical Impression: Acute knee pain Qualifiers: Laterality: right Qualified Code(s): M25.561 - Pain in right knee Instructions: DI for Knee Effusion Activity Restrictions/Additional Instructions: You have been diagnosed with [right lower extremity swelling and pain specially in knee. DVT test was negative. Labs are assuring. No increase in white count but mildly elevated CRP of 1.4 and ESR of 29. Normal uric acid. No indications of heart failure. Test shows moderate joint effusion and mild degeneration of pubic symphysis without acute findings in pelvis and hip x- ray.]. What to do: *Take your medications as directed. Please take Tylenol as needed for discomfort up to 3 to 4 times a day. You can take Ketolac upto 3 times a day as needed for pain. Use Clay wrap as needed to stabilize right knee and crutches for mobilization 8. *Follow up with your primary care provider in 2-3 days, call for an appointment. Let them know you were seen in the ED and that we asked you to be seen in follow up. Please contact [facility] orthopedist if pain improved. *Return to ED if you have any new, worsening, or concerning symptoms, such as [redness, increasing swelling, warmth to affected joint, fever, chills, unable to tolerate fluids, chest pain, dyspnea, near fainting, tingling/numbness/weakness to affected leg or any acute concerns]. Prescriptions: New ketorolac 10 mg tablet 10 mg PO TID PRN (Reason: pain) Qty: 14 RF: 0 No Action Teo-P-Enpisi Cream 1 applic topical PRN PRN (Reason: Tenderness) Qty: 32 RF: 0 docusate sodium [Colace] 100 mg capsule 100 mg PO BID Qty: 60 RF: 0 vit-iron fum-folic ac [ Vitamin with Minerals] 28 mg iron- 800 mcg tablet 1 tab PO DAILY Qty: 90 RF: 3 Referrals: [facility] [Provider Group] [place],MD Dorie [Primary Care Provider] - Leta Kay PA-C [Non-Staff] - <Joseph Mei DO - Last Filed: 05/25/20 09:23> Cosign ED Attending Robel Attestation: I was immediately available in the department for consultation. This documentation has been reviewed and I agree with assessment and plan. Supervised by Joseph Mei DO
== END 2020-05-24 16:52 | disposition home or self-care (01) ==
PROVIDERS: Emergency Provider Nurse Practitioner Family; PCP Obstetrics & Gynecology
DX: M25.561 Pain in right knee (principal)
CPT/HCPCS: 36415; 73521; 73562; 80048; 83880; 84550; 85025; 85651; 86140; 93971; 96372; 99284; J1885

== ENCOUNTER → 2020-06-14 17:17 | Outpatient (CLI) | payer OTHER, MEDICAID, SELFPAY ==
[2020-06-14 17:30] LABS: Add Manual Diff / Slide Review NO; Basophils Absolute Auto 0 /uL (0-100); Basophils Percent Auto 0.6 % (0-2); Eosinophils Absolute Auto 100 /uL (0-450); Eosinophils Percent Auto 1.3 % (2-4); Hematocrit 40.1 % (36-46); Hemoglobin 13.5 g/dL (12.0-16.0); Lymphocytes Absolute Auto 2700 /uL (1100-4500); Lymphocytes Percent Auto 33.2 % (25-40); Mean Corpuscular HGB Conc 33.7 % (30-36); Mean Corpuscular Hemoglobin 27.5 PG (26-34); Mean Corpuscular Volume 81.5 fL (80-100); Monocytes Absolute Auto 600 /uL (0-900); Monocytes Percent Auto 7.7 % (3-14); Neutrophils Absolute Auto 4600 /uL (1500-7000); Neutrophils Percent Auto 57.2 % (50-75); Platelet Count 229 X10^3/uL (150-400); Red Blood Cell Count 4.92 X10^6/uL (4.0-5.2); Red Cell Distribution Width 14.7 % (11.6-14.8); White Blood Cell Count 8.1 X10^3/uL (4.5-11.0)
[2020-06-14 17:48] LABS: Erythrocyte Sedimentation Rate 24 MM/HR (0-20)
[2020-06-14 17:50] LABS: C-Reactive Protein Quant 1.6 mg/dL (<1.0)
== END ==
PROVIDERS: PCP Registered Nurse; Referring Provider Orthopaedic Surgery; Visit Provider Orthopaedic Surgery
DX: M23.91 Unspecified internal derangement of right knee (principal); M65.9 Synovitis and tenosynovitis, unspecified
CPT/HCPCS: 36415; 85025; 85651; 86140

== ENCOUNTER 2021-12-07 09:22 | Emergency (ER) | payer OTHER, MEDICAID, SELFPAY ==
[2021-12-07 10:14] VITALS: BP 112/78; PULSE 68; RESP 15; TEMP 36.7; O2SAT 99; BMI 31.9
--- NOTE | 2021-12-07 10:17 | DI.RAD.S_ITS ---
PROCEDURE: XR HIP W PEL IF DONE RT 2V INDICATIONS: hip pain,03/06 TECHNIQUE: AP pelvis with lateral view(s) of the right hip(s). COMPARISON: None. FINDINGS: Bones: No fractures or dislocations. Pelvic ring appears intact. No suspicious bony lesions. Incidental note made of osteitis pubis. Soft tissues: The visualized bowel gas pattern is normal. No suspicious soft tissue calcifications. IMPRESSION: No fracture. No osseous lesion. If symptoms and/or clinical suspicion for pathology persists, further assessment with repeat radiographs (7-10 days) or advanced imaging (e.g. CT, MRI or bone scan) should be considered. Dictated by: Bria Fiore MD, PhD on 12/07/2021 at 10:52 Approved by: Bria Fiore MD, PhD on 12/07/2021 at 10:53
[2021-12-07 12:07] VITALS: BP 154/64; PULSE 84
--- NOTE | 2021-12-07 12:18 | PC.NURSE ---
Pt reports sunburn on face, shoulders, and top of feet that began Sunday while camping. Pt reports swelling, pain and tenderness to face and under eyes. Pt has noticeable facial swelling under eyes, more prominent under right eye. Reports wearing sunscreen. Pt also c/o right posterior hip pain that shoots down her right thigh that began about a week ago. Pt has taken ibuprofen. No hx of trauma, fall or prior injury.
--- NOTE | 2021-12-07 12:33 | DI.RAD.S_ITS ---
PROCEDURE: XR LUMBAR SPINE 2-3V INDICATIONS: rt hip pain, possibly referred, atraumatic TECHNIQUE: 3 views of the lumbar spine were acquired. COMPARISON: None. FINDINGS: Bones: 5 [id number] vertebrae are present. There is normal bony alignment. No vertebral body compression fractures. No suspicious bony lesions. Soft tissues: Overlying bowel gas pattern is normal. No suspicious soft tissue calcifications. IMPRESSION: No fracture. No acute osseous lesion. If symptoms and/or clinical suspicion for pathology persists, evaluation with MRI should be considered for further assessment. Dictated by: Bria Fiore MD, PhD on 12/07/2021 at 13:12 Approved by: Bria Fiore MD, PhD on 12/07/2021 at 13:12
--- NOTE | 2021-12-07 12:36 | ED.BURNSMOKE ---
HPI - Burn/Smoke Inhalation <Cristal Lizarraga, [facility] - Last Filed: 12/07/21 14:43> General Chief complaint: Burn/Smoke Inhalation Stated complaint: Severe sunburn on face, right hip pain Time Seen by Provider: 12/07/21 12:18 Source: patient Mode of arrival: Ambulatory History of Present Illness HPI Narrative: This is a 36-year-old female who presents to the emergency department three days after a severe sunburn on approximately 20% of her upper body complaining of pain and swelling and now with right hip pain that she denies a history of in the past. She endorses section two years ago and during the epidural she reports having sciatica down her right leg, she states that this pain is similar to that time. She denies any recent illness, fever, weakness, difficulty ambulating but states that she is had increasing pain in her hip and with all movement. She states is worse in the morning. She denies any numbness or tingling distal to this and has full range of motion of her knee and ankle without deficit. She denies any recent trauma, she denies any significant low back pain history, she states that she has had low back pain in the past. She denies any possibility of at this time, she denies dysuria, urinary frequency, urgency, suprapubic pain or flank pain. She denies any abdominal pain or nausea vomiting. She states that she feels fatigued due to the sunburn but denies any dehydration, states that she is voiding. Related Data Previous Rx's Medication Instructions Recorded lanolin (Drl-Q-Bxmeih topical 1 applic topical PRN PRN 01/15/19 cream) Tenderness #32 grams docusate sodium 100 mg capsule 100 mg PO BID constipation #60 caps 03/26/20 (Colace) vitamin-ferrous fumarate 1 tab PO DAILY #90 tabs 03/28/20 28 mg iron-folic acid 800 mcg tablet ( Vitamins with Minerals) ketorolac 10 mg tablet 10 mg PO TID PRN pain #14 tabs 05/24/20 hydrocodone 5 mg-acetaminophen 325 1 tab PO BID PRN pain #14 tabs 12/07/21 mg tablet ibuprofen 600 mg tablet 600 mg PO Q6-8H PRN pain #30 tabs 12/07/21 Allergies Allergy/AdvReac Type Severity Reaction Status Date / Time No Known Drug Allergies Allergy Verified 12/07/21 10:14 Review of Systems <JORGE Paez - Last Filed: 12/07/21 14:43> Review of Systems Narrative: General: denies fever, chills, malaise, sweats, endorses sunburn worst on face and upper arms with fatigue Head/Neck: denies headache, neck pain, dizziness Eyes: denies visual changes, eye pain, endorses facial swelling with a worst around her right eye but denies any eye pain with movement, vision changes, difficulty seeing out of that eye. Cardio: denies chest pain, palpitations, edema Respiratory: denies dyspnea, cough, orthopnea GI: denies abdominal pain, nausea, vomiting, or diarrhea : denies dysuria, hematuria, urinary retention, frequency or incontinence MSK: Endorses right hip joint pain, denies muscle weakness Skin: denies rash, itching, skin lesions or other Neuro: denies numbness, tingling Patient History <JORGE Paez - Last Filed: 12/07/21 14:43> Medical History (Updated 12/07/21 @ 14:28 by JORGE Paez) Abnormal Pap smear of cervix Congenital heart defect Eczema Fibrocystic breast Heart murmur History of gestational diabetes (~2005) Surgical History History of tonsillectomy (~1991) S/P correction of deviated nasal septum S/P D&C (status post dilation and curettage) (~2005) [place] teeth extracted Family History Mother Migraines Tumor, thyroid Colon cancer Grandmother Cancer Son defect Social History marital status: unmarried,living together details: Reji Cardona [phone] number of children: 3 household members: significant other and family lives independently: Yes education level: college occupational status: employed ([employer]) Smoking Status: Never smoker Tobacco: How many years used: 10 alcohol intake: former (Socially) Smoking Status: Never smoker alcohol intake frequency: holidays/special occasions only Substance Use Type: does not use Exam <JORGE Paez - Last Filed: 12/07/21 14:43> Narrative Exam Narrative: Independently reviewed vitals signs and nursing notes. General: cooperative, appears uncomfortable, in no acute distress, well groomed, afebrile Head: atraumatic, symmetrical facial expressions, patient's entire face is sunburned with moderate edema, no blistering, no drainage, no open wounds Neck: supple without anterior cervical lymphadenopathy Eyes: equal round and reactive, EOMI, conjunctiva normal, no eye pain with eye movement or eye movement deficits, orbital edema is present bilaterally however it is soft to palpation, no EOM deficit, visual deficit, difficulty opening or closing her eyes, no tearing, no abnormal discharge. Nose: nares patent, no rhinorrhea Mouth/Throat: moist mucus membranes Cardiovascular: regular rate and rhythm, sun burned areas on upper body are edematous, no dependent lower extremity edema, no significant edema hands, warm extremities Respiratory: normal effort, able to speak in complete sentences, no audible wheezing, stridor, or rales. No retractions or tachypnea. GI: abdomen soft, nontender to palpation, nondistended, no masses, no exquisite tenderness with exam, without guarding or rebound. MSK: moves all extremities, neurovascularly intact, no weakness, normal tone Skin: brisk capillary refill, no rash, moderate erythema to Neuro: normal speech and cognition, A&O x3 Psych: mental status is grossly normal, congruent mood, normal affect, pleasant and cooperative Initial Vital Signs Initial Vital Signs: Vital Signs Temperature 98.0 F 12/07/21 10:14 Pulse Rate 68 12/07/21 10:14 Respiratory Rate 15 12/07/21 10:14 Blood Pressure 112/78 12/07/21 10:14 Pulse Oximetry 99 12/07/21 10:14 Oxygen Delivery Method 12/07/21 10:14 <Joseph Mei DO - Last Filed: 12/08/21 14:28> Initial Vital Signs Initial Vital Signs: Vital Signs Temperature 98.0 F 12/07/21 10:14 Pulse Rate 68 12/07/21 10:14 Respiratory Rate 15 12/07/21 10:14 Blood Pressure 112/78 12/07/21 10:14 Pulse Oximetry 99 12/07/21 10:14 Oxygen Delivery Method 12/07/21 10:14 Course <JORGE Paez - Last Filed: 12/07/21 14:43> Orders Ordered: Discontinued Medications Dexamethasone (Dexamethasone 10 Mg/Ml Vial) 10 mg PO NOW ONE Stop: 12/07/21 12:34 Last Admin: 12/07/21 12:47 Dose: 10 mg Documented By: SB Ketorolac Tromethamine (Ketorolac 30 Mg/Ml Vial) 15 mg IM NOW ONE Stop: 12/07/21 12:34 Last Admin: 12/07/21 12:46 Dose: 15 mg Documented By: SB Oxycodone/Acetaminophen (Oxycodone/Acetaminophen 5/325 Tablet) 1 tab PO NOW ONE Stop: 12/07/21 12:34 Last Admin: 12/07/21 12:46 Dose: 1 tab Documented By: SB Pantoprazole Sodium (Pantoprazole Dr 20 Mg Tablet) 20 mg PO NOW ONE Stop: 12/07/21 12:36 Last Admin: 12/07/21 12:46 Dose: 20 mg Documented By: SB Vital Signs Vital signs: Vital Signs - 8 hr 12/07/21 10:14 12/07/21 12:07 12/07/21 12:07 Temperature 98.0 F Pulse Rate 68 84 Respiratory Rate 15 Blood Pressure 112/78 154/64 H Pulse Oximetry 99 Oxygen Delivery Method Room Air 12/07/21 12:49 12/07/21 12:50 12/07/21 12:50 Temperature Pulse Rate 65 Respiratory Rate Blood Pressure 111/55 L Pulse Oximetry 96 100 Oxygen Delivery Method 12/07/21 13:00 12/07/21 13:00 Temperature Pulse Rate 71 Respiratory Rate Blood Pressure 118/58 L Pulse Oximetry 99 Oxygen Delivery Method <Joseph Mei DO - Last Filed: 12/08/21 14:28> Orders Ordered: Discontinued Medications Dexamethasone (Dexamethasone 10 Mg/Ml Vial) 10 mg PO NOW ONE Stop: 12/07/21 12:34 Last Admin: 12/07/21 12:47 Dose: 10 mg Documented By: SB Ketorolac Tromethamine (Ketorolac 30 Mg/Ml Vial) 15 mg IM NOW ONE Stop: 12/07/21 12:34 Last Admin: 12/07/21 12:46 Dose: 15 mg Documented By: DANIEL Oxycodone/Acetaminophen (Oxycodone/Acetaminophen 5/325 Tablet) 1 tab PO NOW ONE Stop: 12/07/21 12:34 Last Admin: 12/07/21 12:46 Dose: 1 tab Documented By: DANIEL Pantoprazole Sodium (Pantoprazole Dr 20 Mg Tablet) 20 mg PO NOW ONE Stop: 12/07/21 12:36 Last Admin: 12/07/21 12:46 Dose: 20 mg Documented By: SB Vital Signs Vital signs: Vital Signs - 8 hr 12/07/21 10:14 12/07/21 12:07 12/07/21 12:07 Temperature 98.0 F Pulse Rate 68 84 Respiratory Rate 15 Blood Pressure 112/78 154/64 H Pulse Oximetry 99 Oxygen Delivery Method Room Air 12/07/21 12:49 12/07/21 12:50 12/07/21 12:50 Temperature Pulse Rate 65 Respiratory Rate Blood Pressure 111/55 L Pulse Oximetry 96 100 Oxygen Delivery Method 12/07/21 13:00 12/07/21 13:00 Temperature Pulse Rate 71 Respiratory Rate Blood Pressure 118/58 L Pulse Oximetry 99 Oxygen Delivery Method MDM - Burn/Smoke Inhalation <KERRI PaezP - Last Filed: 12/07/21 14:43> Lab Data Labs: Lab Results 12/07/21 Range/Units 14:20 Urine RBC 0-1/hpf (0-5/HPF) Urine WBC 0-1/hpf (0-5/HPF) Ur Squamous Epith Cells 1-5 /hpf (0-5/HPF) Amorphous Sediment 1+ Urine Bacteria None seen (None) Urine Mucus 1+ H (Negative) Ur Culture Indicated? Cult not indicated Point of Care Testing Test Results Negative Urine Dip Bedside Urine Glucose Negative Bedside Urine Bilirubin - Negative Bedside Urine Ketone +/- 5 Urine Specific [place] 1.030 Bedside Urine Occult Blood +/- Bedside Urine pH 6.0 Bedside Urine Protein - Negative Bedside Urine Urobilinogen - Negative Bedside Urine Nitrite - Negative Bedside Urine Leukocytes - Negative Esterase Imaging Data Extremity x-ray #1: Radiologist's Impression: PROCEDURE:? XR LUMBAR SPINE 2-3V ? INDICATIONS:? rt hip pain, possibly referred, atraumatic ? TECHNIQUE:? 3 views of the lumbar spine were acquired.? ? COMPARISON:? None. ? FINDINGS:? ? Bones:? 5 [id number] vertebrae are present.? There is normal bony alignment.? No vertebral body compression fractures.? No suspicious bony lesions.? ? Soft tissues:? Overlying bowel gas pattern is normal.? No suspicious soft tissue calcifications.? ? ? IMPRESSION:? No fracture. No acute osseous lesion. If symptoms and/or clinical suspicion for pathology persists, evaluation with MRI should be considered for further assessment. ? ? Dictated by: Bria Fiore MD, PhD on 12/07/2021 at 13:12 ? ? Approved by: Bria Fiore MD, PhD on 12/07/2021 at 13:12 ? Extremity x-ray #2: Radiologist's Impression: PROCEDURE:? XR HIP W PEL IF DONE RT 2V ? INDICATIONS:? hip pain,03/06 ? TECHNIQUE:? AP pelvis with lateral view(s) of the right hip(s).? ? COMPARISON:? None. ? FINDINGS:? ? Bones:? No fractures or dislocations.? Pelvic ring appears intact.? No suspicious bony lesions.? Incidental note made of osteitis pubis.? ? Soft tissues:? The visualized bowel gas pattern is normal.? No suspicious soft tissue calcifications.? ? ? IMPRESSION:? No fracture. No osseous lesion. If symptoms and/or clinical suspicion for pathology persists, further assessment with repeat radiographs (7-10 days) or advanced imaging (e.g. CT, MRI or bone scan) should be considered. ? ? Dictated by: Bria Fiore MD, PhD on 12/07/2021 at 10:52 ? ? Approved by: Bria Fiore MD, PhD on 12/07/2021 at 10:53 ? [facility] Narrative Medical decision making narrative: This is a 36-year-old female presents to the emergency department complaining of worsening edema on her face from a sunburn she sustained three days ago and also endorses right hip pain without known injury. States that this has been painful over the same amount of time, denies any trauma or falling, denies any weakness or severe low back pain. She endorses symptoms similar to sciatica but thinks that this pain is coming with her hip because her hip hurts with all movements. Patient is currently , states that she has a 2-year-old and had a without any complications. Patient states that she is camping, she has a moderate amount of edema on her face, worse on the right side especially around her right eye, her EOMs are intact without any vision changes, she is able to open her eye fully and close it and does not have any facial weakness. She does not have any abnormal discharge coming from her eye, she is afebrile, does not have any unilateral abnormalities. Patient denies any history of skin infections, she was treated with Toradol 15 mg IM, Percocet, Decadron 10 mg x 1, and Protonix. There is little to no evidence supporting corticosteroid administration for sunburn however this was discussed with the patient and due to her orbital edema, she requested to try it and see if it improves over the next couple of days. She has been doing cool compresses. X-ray of her right hip and her lumbar spine do not show any osseous abnormality, fracture, or acute abnormality. Patient presents with 3 days of lower back pain, hip pain, is atraumatic, and afebrile. Given history and exam, suspect likely musculoskeletal etiology, she is nontoxic appearing with no overt risk factors for epidural hematoma or abscess. No overt evidence or acute critical cord compression with nonfocal neuro exam. Neurovascularly intact distally, no evidence infection, no peritoneal signs or abdominal pain on exam low suspicion for AAA. She does not have any weakness, incontinence, neurovascular or sensation changes or concerning findings for cauda equina syndrome, lumbar fracture, neuropathic pain, epidural abscess, or meningitis, this could also be a herniated disk, paraspinal/other muscle strain, osteoarthritis, nephrolithiasis, pyelonephritis, chronic neuropathic pain, and other considered. Patient is appropriate and amenable to discharge home. Vital signs are stable on repeat examination is unremarkable. Patient has been informed of results. Patient has been given strict return to ER precautions for any new or worsening symptoms. Patient understands to follow up closely with outpatient providers as instructed. Patient understands plan and agrees to discharge home. All questions and concerns answered at this time. <Joseph Mei, - Last Filed: 12/08/21 14:28> Lab Data Labs: Lab Results 12/07/21 Range/Units 14:20 Urine RBC 0-1/hpf (0-5/HPF) Urine WBC 0-1/hpf (0-5/HPF) Ur Squamous Epith Cells 1-5 /hpf (0-5/HPF) Amorphous Sediment 1+ Urine Bacteria None seen (None) Urine Mucus 1+ H (Negative) Ur Culture Indicated? Cult not indicated Point of Care Testing Test Results Negative Urine Dip Bedside Urine Glucose Negative Bedside Urine Bilirubin - Negative Bedside Urine Ketone +/- 5 Urine Specific [place] 1.030 Bedside Urine Occult Blood +/- Bedside Urine pH 6.0 Bedside Urine Protein - Negative Bedside Urine Urobilinogen - Negative Bedside Urine Nitrite - Negative Bedside Urine Leukocytes - Negative Esterase Discharge Plan Departure Patient Disposition: Home Clinical Impression: Sunburn of first degree, Edema of bilateral orbit Instructions: Sunburn Activity Restrictions/Additional Instructions: *You have been diagnosed with a significant sunburn with facial edema, and edema around her eyes called orbital edema. The next 24 hours will help determine whether this is getting worse or if this is getting better. Your steroid will continue to work for the next three days and if you keep your head of bed elevated or sit upright for most of today, I suspect by tonight that a lot of the facial edema will go down. Please do not take any ibuprofen or other anti-inflammatories today since he received Toradol. Please drink plenty of water, much more than your normal amount, eat food with protein and this will help mobilize edema. Please return to the emergency department if you have any eye pain, eye pain with eye movement, if you start having a fever or any signs of infection. Your x-ray of your hip does not show any fracture or bony lesion, I suspect that there is some inflammation causing your pain. Your lumbar spine x-ray does not show any fracture or bony lesion as well, there are no compression fractures or suspicious alignment. Please call the office your previous PCP and see if you can be seen for a follow-up appointment this week. If you develop any worsening or those symptoms as stated above, please return to the emergency department for another evaluation. I do not think that an antibiotic will be helpful at this point since we are not certain if there is any infection, and I do not want to suppress your immune system so I want to see if you get better by tomorrow and we can re-evaluate it if you need to come back. I have sent your medications to [facility], please do not lay down and stay immobile, please continue to get up and walk around and mobilizer body frequently throughout the day and try and stay upright as much as possible. I am sorry for your hip pain, please take ibuprofen every 6 hours with food and water and take hydrocodone on top of that, you may take one tab twice a day without this affecting your breast milk. Because you're , please keep fluids near you at all times and drink plenty of beverages, your skin needs extra fluid as well. *What to do: *Please continue to take your regular medications as directed. [ ] New medication prescriptions sent to your pharmacy: [[facility] ] [ ] New medication written as a paper prescription [ ] No new medications given *Please follow up with your primary care provider in 2-3 days, call for an appointment. Let them know you were seen in the Emergency Department and that we asked that you be seen for follow-up. We will electronically transmit a record of today's note if your PCP is in our system *If you do not have a primary care provider please contact [phone] to establish care with one of the [facility] primary care providers. *Return to Emergency Department if you should have any new, worsening or concerning symptoms, such as [fever greater than 101F, chills, worsening pain, persistent vomiting or other bothersome symptoms] Prescriptions: New hydrocodone-acetaminophen 5-325 mg tablet 1 tab PO BID PRN (Reason: pain) Qty: 14 0RF ibuprofen 600 mg tablet 600 mg PO Q6-8H PRN (Reason: pain) Qty: 30 0RF No Action Lbp-B-Ndvuph Cream 1 applic topical PRN PRN (Reason: Tenderness) Qty: 32 0RF docusate sodium [Colace] 100 mg capsule 100 mg PO BID Qty: 60 0RF Rx Instructions: Take 1-2x daily for constipation prevention. vit-iron fum-folic ac [ Vitamin with Minerals] 28 mg iron- 800 mcg tablet 1 tab PO DAILY Qty: 90 3RF ketorolac 10 mg tablet 10 mg PO TID PRN (Reason: pain) Qty: 14 0RF Referrals: Allyssa Jarquin ARNP [Primary Care Provider] - Visit Report Forms: Patient Portal/API <Joseph Mei DO - Last Filed: 12/08/21 14:28> Cosign ED Attending Willyature Attestation: I was immediately available in the department for consultation. This documentation has been reviewed and I agree with assessment and plan. Supervised by Joseph Mei, DO
[2021-12-07] MEDS: KETOROLAC 30 MG/ML VIAL 15 MG IM (12:46)
[2021-12-07] MEDS: OXYCODONE/ACETAMINOPHEN 5/325 TABLET 1 TAB PO (12:46)
[2021-12-07] MEDS: PANTOPRAZOLE DR 20 MG TABLET PO (12:46)
[2021-12-07] MEDS: DEXAMETHASONE 10 MG/ML VIAL PO (12:47)
[2021-12-07 12:49] VITALS: O2SAT 96
[2021-12-07 12:50] VITALS: BP 111/55; PULSE 65; O2SAT 100
[2021-12-07 13:00] VITALS: BP 118/58; PULSE 71; O2SAT 99
[2021-12-07 14:54] LABS: Amorphous Sediment Urine 1+; RBC Urine 0-1/HPF (0-5/HPF); Squamous Epithelial Cell Urine 1-5 /HPF (0-5/HPF); WBC Urine 0-1/HPF (0-5/HPF)
[2021-12-07 14:55] LABS: Bacteria Urine None Seen; Culture Indicated Urine Cult Not Indicated; Mucus Urine 1+ (Negative)
[2021-12-07 15:00] VITALS: BP 112/57; PULSE 64; RESP 18; O2SAT 99
== END 2021-12-07 14:45 | disposition home or self-care (01) ==
PROVIDERS: Emergency Provider Nurse Practitioner Critical Care Medicine; PCP Registered Nurse
DX: L55.0 Sunburn of first degree (principal); H05.223 Edema of bilateral orbit; M25.551 Pain in right hip
CPT/HCPCS: 72100; 73502; 81003; 81015; 81025; 96372; 99283; 99284; J1100; J1885